=== PATIENT | male | born 1945 | race Caucasian/White ===

== ENCOUNTER → 2018-08-24 09:15 | Outpatient (CLI) | payer MEDICARE, OTHER, SELFPAY ==
[2014-07-25 09:36] VITALS: BMI 25.1
--- NOTE | 2018-08-24 09:18 | RAD_ITS ---
STUDY: X-RAY - LEFT KNEE REASON FOR EXAM: Chronic knee pain. TECHNIQUE: 4 view(s) of the knee. COMPARISON: Radiographs 07/25/2014. FINDINGS: Normal visualized distal femur. Normal visualized proximal tibia and fibula. Normal proximal tibiofibular articulation. Normal medial femorotibial compartment. There are marginal osteophytes, subchondral cystic change of the lateral femoral condyle and severe joint space narrowing of the lateral femorotibial compartment, increased since the prior study. There are small marginal osteophytes without demonstrated joint space narrowing of the patellofemoral articulation. There is a joint effusion. RAD/Knee 4 or More Views IMPRESSION: Increased arthrosis of the lateral femorotibial compartment. Joint effusion. Electronically Signed: Juan Panda MD at 12:57 EST Tel , Service support ,
== END ==
PROVIDERS: Family Provider Internal Medicine; PCP Internal Medicine; Referring Provider Orthopaedic Surgery; Visit Provider Orthopaedic Surgery
DX: M25.562 Pain in left knee (principal)
CPT/HCPCS: 73564

== ENCOUNTER → 2018-08-24 10:29 | Outpatient (CLI) | payer MEDICARE, OTHER, SELFPAY ==
[2014-07-25 09:36] VITALS: BMI 25.1
--- NOTE | 2018-08-24 10:31 | RAD_ITS ---
STUDY: X-RAY - LUMBOSACRAL SPINE REASON FOR EXAM: Male, 73 years old. Low back pain. TECHNIQUE: 6 view(s) of the lumbosacral spine were obtained. COMPARISON: None FINDINGS: Normal lumbar lordosis. Moderate dextroscoliosis. Grade 1 left lateral subluxation of L2 on L3. Mild right lateral subluxation of L3 on L4. Pronounced left-sided disc space height narrowing at L2-L3 and L3-L4 disc space levels. Pronounced L5-S1 disc space height narrowing. Mild L4-L5 disc space height narrowing. No acute fractures. No lytic or blastic lesions. Normal bilateral sacral ala, sacroiliac joints, and visualized sacrum. Normal visualized soft tissue structures. RAD/L/S Spine Comp/w Bending Views IMPRESSION: 1. Moderate dextroscoliosis of the lumbar spine. 2. Grade 1 left lateral subluxation of L2 on L3. 3. Mild right lateral subluxation of L3 on L4. 4. Pronounced left-sided disc space height narrowing at L2-L3 and L4-L5 disc space levels. 5. Diffuse pronounced disc space height narrowing at L5-S1 disc space level. 6. Mild L4-L5 disc space height narrowing. Electronically Signed: Balwinder Gómez MD at 15:37 EST , Service support ,
== END ==
PROVIDERS: Family Provider Internal Medicine; PCP Internal Medicine; Referring Provider Orthopaedic Surgery; Visit Provider Orthopaedic Surgery
DX: M54.16 Radiculopathy, lumbar region (principal); M25.562 Pain in left knee
CPT/HCPCS: 72114; 73564

== ENCOUNTER 2018-08-29 13:52 | Outpatient (RCR) | payer MEDICARE, OTHER, SELFPAY ==
--- NOTE | 2018-08-29 15:00 | HP.PTEVAL ---
Patient's Visit Information HERO ZARAGOZA is a 73 year old M referred to Physical Therapy by Luci Hdez DO with a diagnosis of L knee OA, lumbar radiculopathy. Date of Evaluation: 08/29/18 Physical Therapist: Jeniffer Mejía - Visit Plan Frequency: 1x/Week Duration: 1 Week Plan: 1 additional visit for HEP for L knee AROM, hip and knee strengthening with HEP - Subjective Findings: Pt reports that his L knee is bothering him since 5 years ago. It ususally gets better but now its lasted a few weeks and gets calf, ankle and back of knee. He has PD. He has a visible tremor. He has had PD for 6-7 years and is on medicine. THe cold weather or nerves will make the tremors worse. He has no N$T in the L leg. He reports no weakness. He has not had any falls. Pt does not report LBP. He is unable to sit to stand without using his arms cause it hurts behind his knee. x-rays were done and showed arthritis. 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 Movement helps with the knee and leg pain. His L side is stiff in the morning. Movement helps with this stiffness. Stairs: up with the R and then the L with a railing. Pt exxercises 4X/ week with TM and weights for about 1 hour and 15 min. Pt has been using a brace on his L knee for about the last week and a half.... if he wears the brace the feeling of pressure goes away. - Pain L knee pain Pain Intensity (Out of 10): 1 Pain Intensity Range: 1, 2 - Objective Gait: walks with decreased flexability at the ankle and knee on the L compared to the R. He walks with decreased stance time on the L leg. L knee AROM: -5 degrees from full extension, 96 degrees L knee flexion. R knee AROM: 120 degrees knee flexion, and -1 degrees from full extension. Coordination: Toe tapping on the floor...ok with moving at a slow pace and equal B but when asked to speed up the R foot moved slower than the L. Hand pronation/supination: slower on the L when moving faster. LE MMT: hip flex R 4/5 and L 4-/5, Knee ext B 4/5, Knee flex R 4/5 and L 3+/5, hip abd R 4/5 and L 3+/5. Pt is able to raise heels and toes in shortened range. Very rigid LE with PROM....helps when instruct the pt to relax. L knee very swollen visually. No tenderness to palation L calf. Tight gastroc and HS B - Goals Goal 1:: I HEP to be able to continue with exeercises for strengthening at home Goal Time Frame: 2-4 Weeks Goal 2:: Increase L knee AROM to 105 degrees knee flexion Goal Time Frame: 2-4 Weeks Goal 3:: Decrease L knee pain to 0-1/10 with sitting and walking Goal Time Frame: 2-4 Weeks - Rehabilitation Potential Rehabilitation Potential: Good - Anticipated Interventions Patient/Client Instruction: Educate patient on: Plan of Care For the Purpose of:: To decrease pain, To decrease swelling/inflammation, To improve muscle performance and motor function, To improve ability to perform ADL's, To increase tolerance to activity/condition/position, To improve gait and locomotor functions, To improve health of tissue, To decrease soft tissue restriction, To increase flexibility/ROM Therapeutic Exercise to Include: Strength training, Coordination, Flexibilty training, Gait and locomotor training, Neuromotor development, Active ROM For the Purpose of:: To decrease pain, To decrease swelling/inflammation, To increase ROM, To improve nutrient delivery to tissue, To improve muscle performance and motor function, To increase tolerance to activity/condition/position, To improve performance and independence with ADL's, To improve gait and locomotor functions, To improve health of tissue, To decrease soft tissue restriction, To increase flexibility/ROM, To improve safety with gait Thank you for the opportunity to evaluate your patient. For Medicare and Medicare HMO plans, please review the plan of care and approve it. It will need to be FAXED BACK to us at [phone] for Medicare purposes. For Medicare only, by signing this I certify the plan of care. Please let me know if there are questions or concerns regarding this plan of care. Physician Signature: Date:
--- OUTSIDE RECORDS SUMMARY | 2018-10-15 18:47 | XMS RPT_ITS | Summary of Care ---
:1945 Author Organization [facility] Address [address] [place] [address] Care Team Providers Name Role Phone Tomeka Hastings DO Primary Care Provider Reason for Visit Reason Comments Pain Encounter Details Date Type Department Care Team Description 05/24/2018 Office Visit [facility] Ankur Quinones Primary osteoarthritis [facility] MD Cheng of left knee ([facility] [address] Dx) [address] [place] [address] [phone] Allergies No Known Allergiesas of this encounter Medications Prescription Sig. Disp. Refills Start Date End Date Status amantadine HCl Take 100 mg by 3 03/19/2018 Active (SYMMETREL) 100 mg mouth 3 (three) capsule times a day. amLODIPine-benazepril Take 1 capsule by 1 03/28/2018 Active (LOTREL) 5-20 mg per mouth daily. capsule donepezil (ARICEPT) 5 MG Take 5 mg by mouth 5 05/13/2018 Active tablet daily with breakfast. D3/E/Se/soy Take by mouth. Active isofl/tocoph/lycop (PROSTATE 2.4 ORAL) FAMOTIDINE ORAL Take by mouth. Active as of this encounter Social History Tobacco Use Types Packs/Day Years Used Date Never Smoker Smokeless Tobacco: Never Used Sex Assigned at Date Recorded Not on file as of this encounter Last Filed Vital Signs Vital Sign Reading Time Taken Blood Pressure - - Pulse - - Temperature - - Respiratory Rate - - Oxygen Saturation - - Inhaled Oxygen Concentration - - Weight 79.4 kg (175 lb) 05/24/2018 3:31 PM EDT Height 177.8 cm (5' 10) 05/24/2018 3:31 PM EDT Body Mass Index 25.11 05/24/2018 3:31 PM EDT in this encounter Progress Notes Ankur Quinones MD - 05/24/2018 7:16 PM EDTAssociated Order(s): [place] ORT LARGE JOINT ARTHROCENTESISPost-Procedure Diagnose(s): Primary osteoarthritis of left knee Dictation on: 05/24/2018 7:20 PM by: ANKUR QUINONES [[id number]] LG Jt Injection/Arthrocentesis Performed by: ANKUR QUINONES Authorized by: ANKUR QUINONES Supporting Documentation: Indications: Pain Procedure Details: Location: Knee Site: L knee Prep: patient was prepped and draped in usual sterile fashion Needle size: 22 G Approach: Lateral Medications: 40 mg triamcinolone acetonide 40 mg/mL Anesthetic used: Lidocaine 1% Anesthetic amount (mL): 2 Patient tolerance: Patient tolerated the procedure well with no immediate complications in this encounter Plan of Treatment Pending Results Name Priority Associated Diagnoses Date/Time Joint Routine Primary osteoarthritis of left 05/24/2018 7:16 PM EDT Injection/Arthrocentes knee is Health Maintenance Due Date Last Done Comments COLONOSCOPY 1945 HEPATITIS C SCREENING 1945 TETANUS EVERY 10 YR 1945 ZOSTER VACCINES (1 of 2) 1995 PNEUMOCOCCAL VACCINE AGE 65+ (1 of 2 - PCV13) 2010 SEQUENTIAL INFLUENZA VACCINE (#1) 2018 as of this encounter Procedures Procedure Name Priority Date/Time Associated Diagnosis Comments XR KNEE LEFT 4+ VIEWS Routine 05/24/2018 7:22 Primary Results for this (SPECIFY VIEWS IN PM EDT osteoarthritis of procedure are in COMMENTS) left knee the results section. PA ARTHROCENTESIS Routine 05/24/2018 7:16 Primary ASPIR&/INJ MAJOR PM EDT osteoarthritis of JT/BURSA W/O US left knee Procedure Note - Ankur Quinones MD - 05/24/2018 7:16 PM EDT Dictation on: 05/24/2018 7:20 PM by: ANKUR QUINONES [[id number]] LG Jt Injection/Arthrocentesis Performed by: ANKUR QUINONES Authorized by: ANKUR QUINONES Supporting Documentation: Indications: Pain Procedure Details: Location: Knee Site: L knee Prep: patient was prepped and draped in usual sterile fashion Needle size: 22 G Approach: Lateral Medications: 40 mg triamcinolone acetonide 40 mg/mL Anesthetic used: Lidocaine 1% Anesthetic amount (mL): 2 Patient tolerance: Patient tolerated the procedure well with no immediate complications in this encounter Results XR Knee Left 4+ Views (Note in Comments) (05/24/2018 7:22 PM) Narrative Performed At Lateral joint is bone against bone he has moderate patellofemoral GE RIS degenerative arthritis as well Performing Organization Address [facility] Phone Number [facility] GE RIS in this encounter Visit Diagnoses Diagnosis Primary osteoarthritis of left knee - Primary Administered Medications Inactive Administered Medications - up to 3 most recent administrations Medication Order MAR Action Action Date Dose Rate Site triamcinolone acetonide ([id number]-40) Given 05/24/2018 19:21 EDT 40 mg injection 40 mg 40 mg, Intra-articular, Starting 05/24/18 at 1921 in this encounter
--- OUTSIDE RECORDS SUMMARY | 2018-10-15 18:47 | XMS RPT_ITS ---
:1945 Author Organization OHIP Support Name Relationship Address Phone MARGO ZARAGOZA Unavailable Unavailable + R Unavailable Unavailable Unavailable MILAJMCY Unavailable [address] + [place] [address] R Unavailable Unavailable Unavailable MILA, MARGO Unavailable [address] + [place] [address] R Unavailable Unavailable Unavailable MILA, MARGO Unavailable [address] + [place] [address] R Unavailable Unavailable Unavailable MILA, MARGO Unavailable [address] + [place] [address] R Unavailable Unavailable Unavailable MILA, MARGO Unavailable [address] + [place] [address] R Unavailable Unavailable Unavailable MILA, MARGO Unavailable [address] + [place] [address] MILA, MARGO Unavailable [address] + [place] [address] MILA ROSHAN Unavailable Unavailable Unavailable MILA, MARGO Unavailable Unavailable + MILA, MARGO Unavailable [address] + [place] [address] MILA, MARGO Unavailable Unavailable + MILA, MARGO Unavailable [address] + [place] [address] MILA, MARGO Unavailable Unavailable + MILA, MARGO Unavailable [address] + [place] [address] MILA ROSHAN Unavailable Unavailable Unavailable Care Team Providers Name Role Phone DossiMila vicente D.C. Attending Unavailable ROYAL, MIYA Referring Unavailable BorrusoKemar Attending Unavailable ChicorelliLuci Attending Unavailable ROYAL, MIYA Referring Unavailable Chicorelli, Luci Attending Unavailable ChicorelliLuci Referring Unavailable ROYAL, MIYA Primary Care Unavailable Chicorelli, Luci Attending Unavailable Chicorelli, Luci Referring Unavailable ROYAL, MIYA Primary Care Unavailable Chicorelli, Luci Attending Unavailable Chicorelli, Luci Referring Unavailable ROYAL, MIYA Primary Care Unavailable ThapaBernardino Attending Unavailable Stark, Miya S Primary Care Unavailable Stark, Miya S Attending Unavailable Stark, Miya S Primary Care Unavailable Stark, Miya S Admitting Unavailable Stark, Miya S Primary Care Unavailable Stark, Miya S Admitting Unavailable Stark, Miya S Attending Unavailable ThapaBernardino Attending Unavailable Stark, Miya S Primary Care Unavailable ThapaBernardino louis Admitting Unavailable Stark, Miya S Attending Unavailable Stark, Miya S Primary Care Unavailable Stark, Miya S Admitting Unavailable Stark, Miya S Admitting Unavailable Stark, Miya S Attending Unavailable Stark, Miya S Primary Care Unavailable Stark, Miya S Attending Unavailable Stark, Miya S Primary Care Unavailable Stark, Miya S Admitting Unavailable Stark, Miya S Attending Unavailable Stark, Miya S Primary Care Unavailable Stark, Miya S Primary Care Unavailable ThapaBernardino Admitting Unavailable ThapaBernardino Attending Unavailable Stark, Miya S Attending Unavailable Stark, Miya S Primary Care Unavailable Stark, Miya S Admitting Unavailable Stark, Miya S Admitting Unavailable Stark, Miya S Attending Unavailable Stark, Miya S Primary Care Unavailable Stark, Miya S Attending Unavailable Stark, Miya S Primary Care Unavailable Stark, Miya S Admitting Unavailable Stark, Miya S Attending Unavailable Stark, Miya S Primary Care Unavailable Stark, Miya S Admitting Unavailable BORRUSOKEMAR Admitting Unavailable BORRUSOKEMAR Attending Unavailable Stark, Miya S Primary Care Unavailable Stark, Miya S Admitting Unavailable Stark, Miya S Attending Unavailable Stark, Miya S Primary Care Unavailable BIANCA SANCHEZ Attending Unavailable ROYAL, MIYA S Referring Unavailable ROYAL, MIYA S Primary Care Unavailable LAURA, BIANCA L Attending Unavailable MIYA ANDINO S Referring Unavailable MIYA ANDINO S Primary Care Unavailable Daryl, Dr. Cody Vicente Admitting Unavailable Dr. Cody Brito Attending Unavailable ANTELMO MEZA Attending Unavailable IRENE DE LA ROSA Attending Unavailable MIYA ANDINO. Primary Care Unavailable PROBLEMS PROBLEMS DATE TYPE CONDITION / CODE ATTENDING STATUS SOURCE 09/01/2018 Unknown M51.36 - Other DossiMila vicente Active [place] intervertebral disc [facility] degeneration, lumbar Hospital region / Repository M51.36(ICD-10) 09/01/2018 Unknown M41.26 - Other Dossie, Mila Active [place] idiopathic [facility] scoliosis, lumbar [facility] region / Repository M41.26(ICD-10) 08/24/2018 Unknown M25.562 - Pain in Chicorelli, Active [place] left knee / [facility] M25.562(ICD-10) Hospital Repository 08/24/2018 Unknown M54.16 - Chicorelli, Active [place] Radiculopathy, [facility] lumbar region / Hospital M54.16(ICD-10) Repository 08/24/2018 Unknown M17.12 - Unilateral Chicorelli, Active [place] primary [facility] osteoarthritis, left Hospital knee / Repository M17.12(ICD-10) 07/18/2018 Admitting Parkinson's disease LAURA, Active [facility] diagnosis / G20(ICD-10) [facility] Repository 05/24/2018 Admitting Unilateral primary RJIRENE Active [facility] diagnosis osteoarthritis, left JOSEE Three knee / Repository M17.12(ICD-10) 01/17/2018 Admitting Follow-up / 145() LAURA, Active [facility] diagnosis BIANCA [facility] Repository PROCEDURES PROCEDURES No Procedure Records FoundRESULTS RESULTS BMP Collected: 10/10/2018 Status: F Source: [facility] 7:43 [facility] REPOSITORY TYPE CODE TESTS RESULT OUT OF RANGE REFERENCE UNITS LAB [id number](L 70-99 mg/dL OINC) Glucose Normal Lvl 84 LAB [id number](L 6-23 mg/dL OINC) BUN Normal 19 LAB [id number](LO 0.5-1.3 mg/dL INC) Normal Creatinine 1.0 LAB [id number](L 5.4-30.0 ratio OINC) Normal BUN/Creat Ratio 19.0 LAB [id number](L 8.6-10.3 mg/dL OINC) Calcium Normal Lvl 9.5 LAB [id number](L 136-145 mEq/L OINC) Sodium Normal Lvl 140 LAB [id number](L 3.5-5.3 mEq/L OINC) Normal Potassium Lvl 3.6 LAB [id number](L 98-107 mEq/L OINC) Chloride Normal 106 LAB [id number](L 21.0-32.0 mEq/L OINC) CO2 Normal 29.0 LAB [id number](L 10-20 mEq/L OINC) Low AGAP 9 Performed By: #### [id number] #### MARY [employer] [facility] [place] [address] EGFR Collected: 10/10/2018 Status: F Source: [facility] 7:43 AM [facility] REPOSITORY Order Comment: Order added by Discern Expert. TYPE CODE TESTS RESULT OUT OF RANGE REFERENCE UNITS LAB [id number](LO mL/min/1.73 INC) m2 Normal eGFR >60 LAB [id number](LO mL/min/1.73 INC) m2 Normal eGFR AA >60 Performed By: #### [id number] #### MARY [employer] [facility] [place] [address] PSA SCREEN Collected: 10/10/2018 Status: F Source: [facility] 7:43 AM [facility] REPOSITORY TYPE CODE TESTS RESULT OUT OF RANGE REFERENCE UNITS LAB [id number](LO ng/mL INC) Normal PSA 3.30 Result Comment: AGE-SPECIFIC REFERENCE RANGES FOR SERUM PSA REFERENCE RANGE NG/ML AGE ASIANS BLACKS WHITE 40-49 0- 2 0-2 0-2.5 50-59 0- 3 0-4 0-3.5 60-69 0- 4 0-4.5 0-4.5 70-79 0- 5 0-5.5 0-6.5 PSA INCREASES WITH AGE, RACE, AND EJACULATION WITHIN 48 HRS. [facility] VOL24,NO.2, , PG.339 Performed By: #### [id number] #### MARY [employer] [facility] [place] [id number] ORTHOPEDIC VISIT Observed: 10/05/2018 Status: F Source: IRENE REPORT 3:10 PM [facility] [place] [facility] [address] [place] [address] OFFICE VISIT Date of Service: 10/05/18 MR#: [id number] Acct: [id number] Name: ROSHAN ZARAGOZA Rep #: [id number] : 1945 Provider: Kemar Rucker DO Age/Sex: 73/M Location: [facility] Status: Signed Intake Vital Signs10/05/18 Body Mass Index (BMI) 25.1 Intake Visit Reasons: LEFT KNEE Chief Complaint: L knee pain Allergies No Known Allergies Allergy (Verified 08/24/18 09:06) Medications Amantadine [Symmetrel] 100 mg PO TID 03/06/14 [History Confirmed 10/05/18] Omeprazole [Prilosec] 20 mg PO BID 03/06/14 [History Confirmed 10/05/18] Polyethylene Glycol 3350 [Miralax] 17 gm PO DAILY 03/06/14 [History Confirmed 10/05/18] Docusate Sodium [Colace] 100 mg PO BID PRN PRN #10 cap 03/14/14 [Rx Confirmed 10/05/18] donepezil 5 mg tablet 5 mg PO DAILY 10/05/18 [History Confirmed 10/05/18] PFSH Medical History DDD (degenerative disc disease), lumbar (Chronic) Scoliosis (Chronic) Arthritis (Acute) GERD (gastroesophageal reflux disease) (Acute) Headaches, cluster (Acute) Melanoma (Acute) Parkinson disease (Acute) Right club foot (Acute) Hypertension (Chronic) Surgical History H/O shoulder replacement (Acute) Social History Smoking Status: Unknown if ever smoked alcohol intake: never substance use type: does not use what type of physical activity do you participate in: walking, weight training frequency: 3-4 times per week HPI LEFT KNEE: Details: ROSHAN ZARAGOZA is a 73 year old M here today for left knee pain for many years. He has about 80 degrees of flexion until he has tight painful feeling and full extension. He has clicking and swelling on and off. He takes aspirin daily 325mg to aid in relief. He did go for PT eval and is compliant with HEP he has had a steroid injection without relief in the past 2 months. Denies numbness, tingling or other associated symptoms. He does complain of some hamstring pain and radiation down his leg at times. 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 Ortho Exam Left Knee Swelling: Yes 3+: Effusion Knee ROM: Yes ROM-Extension -20 to 0 (Lacking 8 degrees is) Examination: Yes med jt line tenderness, Yes Lat jt line tenderness, Yes TTP inf pole patella, Yes Pain with flexion Stability: NML: Anterior Drawer, NML: Posterior Drawer, NML: Valgus 30, NML: Varus 30 Patella Grind: Yes KNEE: Palpable pedal pulse. no errythema or ecchymosis. postive bakers cyst. 78 degrees knee flexion. -8 degrees knee extension. no collateral instability. No foot drop Office Procedures Ortho Aspiration Procedure Detail Procedure performed by: Kemar Rucker Ortho Injections/Aspirations Yes Knee Left Details: Obtained consent for aspiration. Under sterile conditions, aspiration the patients left knee 65cc of clear, yellow fluid . The patient tolerated the injection well without any noted complication. Patient should call our office if redness develops, pain worsens or if they have any concerns. Supplemental Info Personally reviewed patients left knee severe lateral compartment OA, bone on bone on flexion view. Moderate PF spurring. Assessment AND Plan Problems 1. Primary osteoarthritis of left knee M17.12 Plan Spoke with the patient about his options- an aspiration and injection or a total knee replacement. Explained the total knee surgical procedure and recovery. Explained that he may return home after surgery. He should work on range of motion within the first 6 weeks post op, and explained the importance of range of motion. He has a risk of decreased range of motion following surgery due to decreased range of motion pre-operatively. He may do PT prior to surgery for range of motion. Gave the patient a script for PT. It may take up to 3 months to feel better and up to 2 years to be fully recovered. He will be on a blood thinner for 2 weeks following surgery to prevent blood clots. He will be put on flomax after surgery due to prior issues with surgery. He should stop aspirin 1 week prior to surgery. Patient has failed conservative treatment with injections and therapy. Explained that he has radiating pain into his quad and calf from his knee swelling. Patient would like to proceed with surgery at this time. Reviewed the pre-operative plans with the patient. Risks and benefits of the procedure were fully explained, including but not limited to infection, neurovascular injury, continued pain, arthritis, stiffness, need for further surgery, re-injury, DVT, PE, general risks of anesthesia, and loss of limb or life. The patient understands all the risks and does wish to proceed with written consent. Follow up for 2 week post op or sooner if pain, swelling, numbness or associated symptoms, or concerns develop. All questions answered. Patient in agreement of plan. Orders Orders: Coding Level of Care Code Off vis,est,level 4 Diagnoses Primary osteoarthritis of left knee M17.12 Osteoarthritis type: primary Additional Codes manager corporate responsibility.knee ([id number]) 10/05/18 1510 <Electronically signed by Kemar Rucker DO> Date Kemar Rucker DO Cosigner Signature: Date (if applicable) CC: MIYA ANDINO CHIROPRACTIC REPORT Observed: 08/31/2018 Status: F Source: IRENE 4:07 PM [facility] [place] [facility] [facility] [address] [place] [address] OFFICE VISIT Date of Service: 08/31/18 MR#: [id number] Acct: [id number] Name: ROSHAN ZARAGOZA Krysta Rep #: [id number] : 1945 Provider: Mila Canela D.C. Age/Sex: 73/M Location: [facility] Status: Signed Intake Vital Signs08/31/18 Height 5 ft 10 in 08/31/18 Weight: 175 lb 08/31/18 Body Mass Index (BMI) 25.1 Intake Visit Reasons: Knee pain Chief Complaint: L knee pain Accompanied by: Daughter Is patient in pain?: Yes Allergies No Known Allergies Allergy (Verified 08/24/18 09:06) Medications Amantadine [Symmetrel] 100 mg PO TID 03/06/14 [History Confirmed 03/06/14] Amlodipine/Benazepril [Lotrel 5-20 MG Capsule] 1 cap PO DAILY 03/06/14 [History Confirmed 03/06/14] Aspirin [Aspirin, Baby] 81 mg PO DAILY@0800 03/06/14 [History Confirmed 03/06/14] Omeprazole [Prilosec] 20 mg PO BID 03/06/14 [History Confirmed 03/06/14] Polyethylene Glycol 3350 [Miralax] 17 gm PO DAILY 03/06/14 [History Confirmed 03/06/14] Docusate Sodium [Colace] 100 mg PO BID PRN PRN #10 cap 03/14/14 [Rx] Enoxaparin [Lovenox] 30 mg SQ DAILY@0600 #7 syringe 03/14/14 [Rx] Hydrocodone Bitart/Apap 5-325 [Lyons 5/325] 1 - 2 tab PO Q6H PRN PRN #30 tab 03/14/14 [Rx] proMETHazine tablet [Phenergan] 25 mg PO Q4H PRN PRN #10 tab 03/14/14 [Rx] PFSH Medical History DDD (degenerative disc disease), lumbar (Chronic) Scoliosis (Chronic) Arthritis (Acute) GERD (gastroesophageal reflux disease) (Acute) Headaches, cluster (Acute) Melanoma (Acute) Right club foot (Acute) Hypertension (Chronic) Parkinson disease (Acute) Surgical History H/O shoulder replacement (Acute) Social History Smoking Status: Unknown if ever smoked alcohol intake: never substance use type: does not use what type of physical activity do you participate in: walking, weight training frequency: 3-4 times per week HPI Knee pain : Chief Complaint: L knee pain Visit Number: 1 Referral source: Details: ROSHAN ZARAGOZA is a 73 year old M who presents with L sided knee pain. The patient states that pain has been ongoing for many years, although has recently increased. Roshan describes the pain as a fatou horse sensation that is painful in the orta, posterior and anterior to the knee cap and into the calf. Sitting and bending the knee causes severe pain, although when walking the pain does not increase. Roshan does have a club foot on the R side, causing him to bear most of his weight on the L leg. Roshan is unaware of any injury to his back, although he enjoys cutting firewood with frequent bending, leaning, twisting, and lifting. Today Roshan rates his pain a 3/10, although with movement or rotation of the knee, the pain does increase. The patient denies any numbness, tingling, or radiculopathy. Onset: 09/19/12 Location: L knee Duration: constant Aggravating or associated factors: sitting, rotation, and flextion of the knee Relieving factors: unknown Pain Quality: aching, dull, cramping, sharp, radiating Exam Musc General: Yes deformity (right club foot), joint tenderness (L knee) and decreased ROM; no normal posture or normal gait (favors right leg) Thoracic/Lumbar Spine: thor and lumb spine abnorm to inspection, scoliosis (right lumbar), thoraco-lumbar spasm on the right greater than left (lumbar), no paraspinal tenderness, thoraco-lumbar ROM limited with forward flexion, with rotation to the right, with lateral flexion to the right, with rotation to the left and with lateral flexion to the left, no pain with thoraco-lumbar ROM, negative Lasegue's sign (mild L knee pain), straight leg raise negative bilaterally Ortho Test CERVICAL THORACIC Amaral: Positive (right lumbar) LUMBAR Kemps: Negative Valsalvas: Negative SLR: Negative Iliac Compression: Negative Assessment AND Plan Problems 1. DDD (degenerative disc disease), lumbar M51.36 2. Other idiopathic scoliosis, lumbar region M41.26 Plan Patient currently has no back/pelvic discomfort. His ROM were WNL. Orthopaedic testing for low back and pelvis was also WNL. Recommend continued treatment with PT for L knee discomfort. Instructed to follow up should pain persisted after PT has been completed. Plan Detail Follow Up with PT Coding Level of Care Code Off vis,new,level 3 Diagnoses DDD (degenerative disc disease), lumbar M51.36 Other idiopathic scoliosis, lumbar region M41.26 Scoliosis type: idiopathic Idiopathic scoliosis type: other Spinal region: lumbar 08/31/18 1607 <Electronically signed by Mila Canela D.C.> Date Mila Canela D.C. Ionaigner Signature: Date (if applicable) CC: INITAL EVALUATION (1) Observed: 08/30/2018 Status: F Source: XENIA - PT 7:21 PM [facility] [place] [facility] [address] [place] [address] Fax REHABILITATION SERVICES INITIAL EVALUATION MR#: [id number] Acct: [id number] Name: ROSHAN ZARAGOZA Rep #: [id number] : 1945 73 From: Jeniffer Mejía MPT Referring Dr.: Luci Hdez DO Status: REG RCR Insurance: MEDICARE PART A B [facility] Patient's Visit Information ROSHAN ZARAGOZA is a 73 year old M referred to Physical Therapy by Luci Hdez DO with a diagnosis of L knee OA, lumbar radiculopathy. Date of Evaluation: 08/29/18 Physical Therapist: Jeniffer Mejía - Visit Plan Frequency: 1x/Week Duration: 1 Week Plan: 1 additional visit for HEP for L knee AROM, hip and knee strengthening with HEP - Subjective Findings: Pt reports that his L knee is bothering him since 5 years ago. It ususally gets better but now its lasted a few weeks and gets calf, ankle and back of knee. He has PD. He has a visible tremor. He has had PD for 6-7 years and is on medicine. THe cold weather or nerves will make the tremors worse. He has no N$T in the L leg. He reports no weakness. He has not had any falls. Pt does not report LBP. He is unable to sit to stand without using his arms cause it hurts behind his knee. x-rays were done and showed arthritis. 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 Movement helps with the knee and leg pain. His L side is stiff in the morning. Movement helps with this stiffness. Stairs: up with the R and then the L with a railing. Pt exxercises 4X/ week with TM and weights for about 1 hour and 15 min. Pt has been using a brace on his L knee for about the last week and a half.... if he wears the brace the feeling of pressure goes away. - Pain L knee pain Pain Intensity (Out of 10): 1 Pain Intensity Range: 1, 2 - Objective Gait: walks with decreased flexability at the ankle and knee on the L compared to the R. He walks with decreased stance time on the L leg. L knee AROM: -5 degrees from full extension, 96 degrees L knee flexion. R knee AROM: 120 degrees knee flexion, and -1 degrees from full extension. Coordination: Toe tapping on the floor...ok with moving at a slow pace and equal B but when asked to speed up the R foot moved slower than the L. Hand pronation/supination: slower on the L when moving faster. LE MMT: hip flex R 4/5 and L 4-/5, Knee ext B 4/5, Knee flex R 4/5 and L 3+/5, hip abd R 4/5 and L 3+/5. Pt is able to raise heels and toes in shortened range. Very rigid LE with PROM....helps when instruct the pt to relax. L knee very swollen visually. No tenderness to palation L calf. Tight gastroc and HS B - Goals Goal 1:: I HEP to be able to continue with exeercises for strengthening at home Goal Time Frame: 2-4 Weeks Goal 2:: Increase L knee AROM to 105 degrees knee flexion Goal Time Frame: 2-4 Weeks Goal 3:: Decrease L knee pain to 0-1/10 with sitting and walking Goal Time Frame: 2-4 Weeks - Rehabilitation Potential Rehabilitation Potential: Good - Anticipated Interventions Patient/Client Instruction: Educate patient on: Plan of Care For the Purpose of:: To decrease pain, To decrease swelling/inflammation, To improve muscle performance and motor function, To improve ability to perform ADL's, To increase tolerance to activity/condition/position, To improve gait and locomotor functions, To improve health of tissue, To decrease soft tissue restriction, To increase flexibility/ROM Therapeutic Exercise to Include: Strength training, Coordination, Flexibilty training, Gait and locomotor training, Neuromotor development, Active ROM For the Purpose of:: To decrease pain, To decrease swelling/inflammation, To increase ROM, To improve nutrient delivery to tissue, To improve muscle performance and motor function, To increase tolerance to activity/condition/position, To improve performance and independence with ADL's, To improve gait and locomotor functions, To improve health of tissue, To decrease soft tissue restriction, To increase flexibility/ROM, To improve safety with gait Thank you for the opportunity to evaluate your patient. For Medicare and Medicare HMO plans, please review the plan of care and approve it. It will need to be FAXED BACK to us at [phone] for Medicare purposes. For Medicare only, by signing this I certify the plan of care. Please let me know if there are questions or concerns regarding this plan of care. Physician Signature: Date: <Electronically signed by Jeniffer ESCAMILLA> 08/30/181920 CC: Luci ANDINO Signed ORTHOPEDIC VISIT Observed: 08/24/2018 Status: F Source: IRENE REPORT 11:17 AM [facility] [place] [facility] [facility] [address] [place], [place] [id number] OFFICE VISIT Date of Service: 08/24/18 MR#: [id number] Acct: [id number] Name: ROSHAN ZARAGOZA Rep #: [id number] : 1945 Provider: Luci Hdez DO Age/Sex: 73/M [place] [facility] [place]: Signed Intake Intake Visit Reasons: LEFT KNEE Is patient in pain?: Yes Pain scale (1-10): 7 Allergies No Known Allergies Allergy (Verified 08/24/18 09:06) Medications Amantadine [Symmetrel] 100 mg PO TID 03/06/14 [History Confirmed 03/06/14] Amlodipine/Benazepril [Lotrel 5-20 MG Capsule] 1 cap PO DAILY 03/06/14 [History Confirmed 03/06/14] Aspirin [Aspirin, Baby] 81 mg PO DAILY@0800 03/06/14 [History Confirmed 03/06/14] Omeprazole [Prilosec] 20 mg PO BID 03/06/14 [History Confirmed 03/06/14] Polyethylene Glycol 3350 [Miralax] 17 gm PO DAILY 03/06/14 [History Confirmed 03/06/14] Docusate Sodium [Colace] 100 mg PO BID PRN PRN #10 cap 03/14/14 [Rx] Enoxaparin [Lovenox] 30 mg SQ DAILY@0600 #7 syringe 03/14/14 [Rx] Hydrocodone Bitart/Apap 5-325 [Lyons 5/325] 1 - 2 tab PO Q6H PRN PRN #30 tab 03/14/14 [Rx] proMETHazine tablet [Phenergan] 25 mg PO Q4H PRN PRN #10 tab 03/14/14 [Rx] PFSH Medical History Parkinson disease (Acute) Surgical History H/O shoulder replacement (Acute) Social History Smoking Status: Unknown if ever smoked HPI LEFT KNEE: Details: ROSHAN ZARAGOZA is a 73 year old M here today for left knee pain. Patient states that he has had left knee pain for about 5 years. He denies any known injury. Patient has a right club foot and has to ambulate with more weight on his left leg. Patient complains of pain over his entire knee and into his upper leg. He states that his pain moves. Patient notes that he has grinding. He has knee swelling. He has been wearing the compression stocking and a knee brace which has been helpful. He had xrays which he did not bring with him. Patient denies any MRI. He was given a steroid injection 6 weeks ago which was not helpful. Patient denies any physical therapy. ROS Const Reports system reviewed and no additional complaints, except as docu Eyes Reports system reviewed and no additional complaints, except as docu ENT Reports system reviewed and no additional complaints, except as docu Card Reports system reviewed and no additional complaints, except as docu Resp Reports system reviewed and no additional complaints, except as docu GI Reports system reviewed and no additional complaints, except as docu Reports system reviewed and no additional complaints, except as docu Musc Reports joint pain, Reports joint swelling Skin/Breast Reports system reviewed and no additional complaints, except as docu Neuro Yes system reviewed and no additional complaints, except as docu Psych Reports system reviewed and no additional complaints, except as docu Endo Reports system reviewed and no additional complaints, except as docu Ortho Exam Right Knee Skin/Wound: Yes CDI Contralateral Normal: No Swelling: No Knee ROM: Yes ROM-Extension -20 to 0 (10), Yes ROM-Flexion 0-140 Examination: Yes Med jt line tenderness, Yes Lat jt line tenderness, Yes Pain with flexion, Yes Crepitus Quad Atrophy: No Left Knee Skin/Wound: Yes CDI Contralateral Normal: No Swelling: Yes Homans Sign: No 1+: Effusion Knee ROM: Yes ROM-Flexion 0-140, Yes ROM-Extension -20 to 0 Examination: Yes med jt line tenderness, Yes Pain with flexion, No Lat jt line tenderness, Yes Crepitus Quad Atrophy: No Patella Grind: Yes KNEE: Upon examination of left knee, patient has mild laxity and slight joint space opening medial and lateral with both valgus and varus, greatest pain in the lateral compartment. neg straight leg raise for back pain or n/t, symmetrical deminished reflexes, palpable Tapia's Cyst Assessment AND Plan 1. Osteoarthritis of left knee, unspecified osteoarthritis type M17.12 Plan Personally reviewed the patient's medical history, medications, surgeries and recent exams if available. X-rays were reviewed. There is no obvious fracture, dislocation, or lucency noted but OA noted in medial and lateral compartments. Educated on the anatomy of the knee, explained that he has OA. He has failed injections, we will order him a lateral business info consultant brace, consult with chiro, PT and have him consult with Dr Rucker for TKA later if the conservative care fails. He is also having radicular hamstring pain likely from his lumbar spine. Reviewed the lack of definitive results of stem cell injections and that we do not do it here but we can do PRP if indicated and he is not a good candidate. Follow up in 3 months or sooner if pain, swelling, numbness or associated symptoms, or concerns develop. All questions answered. Patient in agreement of plan. 2. Lumbar radicular pain M54.16 Plan Ordered back films to be taken on his way out today. Discussed the most likely has degenerative scoliosis degenerative disc disease and will refer to either chiropractor or Dr. Barnard if you continue to have a leg pain down to his foot. Patient lost follow-up it is not doing better in about 2-[address] Rucker as pain is coming from his knee but also made worse by his pain that goes down his leg into his ankle and foot. If conservative treatment fails patient will be a good candidate for injections to see if that temporizing some of his radicular symptoms and again follow- up here with my partner discuss for further intervention surgically with total knee if warrants at that time. This note was generated with Purple [employer] dictation software. It may contain incorrect words, spelling, and punctuation that were not noted in checking the note before signing. Orders Orders: Plan Detail Other Orders Orders: Coding Level of Care Code Off vis,new,level 3 Diagnoses Osteoarthritis of left knee, unspecified osteoarthritis type M17.12 Osteoarthritis type: unspecified Lumbar radicular pain M54.16 08/24/18 1117 <Electronically signed by Luci Hdez DO> Date Luci Hdez DO Cosigncheyanne Signature: Date (if applicable) CC: L/S SPINE COMP/W Observed: 08/24/2018 Status: F Source: IRENE BENDING VIEWS 10:32 AM [facility] [place] [facility] Imaging Services [address] [place] [address] L/S Spine Comp/w Bending Views MR#: [id number] Acct: [id number] Name: ROSHAN ZARAGOZA Krysta Rep #: [id number] : 1945 M 73 From: Balwinder Gómez MD PCP: MIYA ANDINO Status: REG CLI Study: L/S Spine Comp/w Bending Views Date of Exam: 08/24/18 Exam# [id number] Ordering Dr: Luci Hdez DO STUDY: X-RAY - LUMBOSACRAL SPINE REASON FOR EXAM: Male, 73 years old. Low back pain. TECHNIQUE: 6 view(s) of the lumbosacral spine were obtained. COMPARISON: None FINDINGS: Normal lumbar lordosis. Moderate dextroscoliosis. Grade 1 left lateral subluxation of L2 on L3. Mild right lateral subluxation of L3 on L4. Pronounced left-sided disc space height narrowing at L2-L3 and L3-L4 disc space levels. Pronounced L5-S1 disc space height narrowing. Mild L4-L5 disc space height narrowing. No acute fractures. No lytic or blastic lesions. Normal bilateral sacral ala, sacroiliac joints, and visualized sacrum. Normal visualized soft tissue structures. RAD/L/S Spine Comp/w Bending Views IMPRESSION: 1. Moderate dextroscoliosis of the lumbar spine. 2. Grade 1 left lateral subluxation of L2 on L3. 3. Mild right lateral subluxation of L3 on L4. 4. Pronounced left-sided disc space height narrowing at L2- L3 and L4-L5 disc space levels. 5. Diffuse pronounced disc space height narrowing at L5-S1 disc space level. 6. Mild L4-L5 disc space height narrowing. Electronically Signed: Balwinder Gómez MD at 15:37 EST , Service support , CC: Luci ANDINO Retail General Manager: Signed KNEE 4 OR MORE Observed: 08/24/2018 Status: F Source: XENIA VIEWS 9:18 AM [facility] [place] [facility] Imaging Services [address] [place] [address] Knee 4 or More Views MR#: [id number] Acct: [id number] Name: ROSHAN ZARAGOZA Rep #: [id number] : 1945 M 73 From: Juan Panda MD PCP: MIYA ANDINO Status: REG CLI Study: Knee 4 or More Views Date of Exam: 08/24/18 Exam# [id number] Ordering Dr: Luci Hdez DO STUDY: X-RAY - LEFT KNEE REASON FOR EXAM: Chronic knee pain. TECHNIQUE: 4 view(s) of the knee. COMPARISON: Radiographs 07/25/2014. FINDINGS: Normal visualized distal femur. Normal visualized proximal tibia and fibula. Normal proximal tibiofibular articulation. Normal medial femorotibial compartment. There are marginal osteophytes, subchondral cystic change of the lateral femoral condyle and severe joint space narrowing of the lateral femorotibial compartment, increased since the prior study. There are small marginal osteophytes without demonstrated joint space narrowing of the patellofemoral articulation. There is a joint effusion. RAD/Knee 4 or More Views IMPRESSION: Increased arthrosis of the lateral femorotibial compartment. Joint effusion. Electronically Signed: Juan Panda MD at 12:57 EST Tel , Service support , CC: Luci Hdez DO; MIYA ANDINO Retail General Manager: Signed XR KNEE LEFT 4+ VIEWS Observed: 05/24/2018 Status: F Source: [place] [facility] (SPECIFY VIEWS IN 12:00 AM THREE REPOSITORY COMMENTS) Lateral joint is bone against bone he has moderate patellofemoral degenerative arthritis as well Dictated by: IRENE DE LA ROSA on TueMay 24, 2018 7:22:13 PM EDT Transcribed by: IRENE DE LA ROSA on TueMay 24, 2018 7:22:13 PM EDT Finalized by: IRENE DE LA ROSA on TueMay 24, 2018 7:22:13 PM EDT XR KNEE LEFT 4+ VIEWS Observed: 05/24/2018 Status: F Source: [facility] (SPECIFY VIEWS IN 12:00 AM THREE REPOSITORY COMMENTS) Lateral joint is bone against bone he has moderate patellofemoral degenerative arthritis as well Dictated by: IRENE DE LA ROSA on TueMay 24, 2018 7:22:13 PM EDT Transcribed by: IRENE DE LA ROSA on TueMay 24, 2018 7:22:13 PM EDT Finalized by: IRENE DE LA ROSA on TueMay 24, 2018 7:22:13 PM EDT PSA TOTAL Collected: 05/05/2018 Status: F Source: EVANGELICAL 10:02 AM [facility] REPOSITORY TYPE CODE TESTS RESULT OUT OF RANGE REFERENCE UNITS LAB [id number](LO ng/mL INC) Normal PSA Total 4.00 Result Comment: AGE-SPECIFIC REFERENCE RANGES FOR SERUM PSA REFERENCE RANGE NG/ML AGE ASIANS BLACKS WHITE 40-49 0- 2 0-2 0-2.5 50-59 0- 3 0-4 0-3.5 60-69 0- 4 0-4.5 0-4.5 70-79 0- 5 0-5.5 0-6.5 PSA INCREASES WITH AGE, RACE, AND EJACULATION WITHIN 48 HRS. [facility] VOL24,NO.2, , PG.339 Performed By: #### [id number] #### MARY [employer] [address] [place] [address] SURG Observed: 04/18/2018 Status: F Source: [facility] 12:00 AM [facility] REPOSITORY Patient Name: ROSHAN ZARAGOZA Source Skin, Right Cheek Clinical History ? BCC Diagnosis Basal cell carcinoma focally involving the deep biopsy margin. The peripheral margins are negative for tumor. JF/arj Gross Description The specimen received in formalin is a grayish-zimmerman fragment measuring 1.3 x 1.1 x 0.5 cm. Margins are inked black. Serially sectioned. Totally submitted in one cassette. CS:lat (LISSETTE/lt) Electronically Signed By Delfino Villagomez MD , Pathologist (Case signed 04/20/2018) BMP Collected: 03/15/2018 Status: F Source: EVANGELICAL 7:36 AM [facility] REPOSITORY TYPE CODE TESTS RESULT OUT OF RANGE REFERENCE UNITS LAB [id number](L 70-99 mg/dL OINC) Glucose Normal Lvl 83 LAB 77152652(L 7-18 mg/dL OINC) High BUN 24 LAB 9848415(LO 0.6-1.3 mg/dL INC) Normal Creatinine 1.1 LAB 32940119(L 5.4-30.0 ratio OINC) Normal BUN/Creat Ratio 21.8 LAB 47741976(L 8.4-10.2 mg/dL OINC) Calcium Normal Lvl 9.2 LAB 71149708(L 136-145 mEq/L OINC) Sodium Normal Lvl 139 LAB 21825874(L 3.5-5.1 mEq/L OINC) Normal Potassium Lvl 3.9 LAB 27967970(L 98-107 mEq/L OINC) Chloride Normal 105 LAB 46057118(L 24.0-30.0 mEq/L OINC) CO2 Normal 28.0 Performed By: #### [id number] #### MARY [employer] [facility] [place] [id number] EGFR Collected: 03/15/2018 Status: F Source: EVANGELICAL 7:36 AM [facility] REPOSITORY Order Comment: Order added by Discern Expert. TYPE CODE TESTS RESULT OUT OF RANGE REFERENCE UNITS LAB 56263393(LO mL/min/1.73 INC) m2 Normal eGFR >60 LAB 65806437(LO mL/min/1.73 INC) m2 Normal eGFR AA >60 Performed By: #### [id number] #### MARY [facility] [address] [place] [address] ALLERGIES ALLERGIES DATE TYPE / CODE NAME / CODE REACTION SEVERITY SOURCE 08/24/2018 Drug No Known Unknown [facility] Allergy/416 Allergies/L92014 [facility] 673113(SNOM 0388(RXNORM) Repository ED CT) Drug/900194 No Known Alevism 003(SNOMED Allergies [facility] CT) System Repository Drug NO KNOWN [facility] Class/68568 ALLERGIES Repository 1003(SNOMED CT) ENCOUNTERS ENCOUNTERS ADMIT/DISCHARGE ACCOUNT NUMBER ADMITTING ENCOUNTER LOCATION SOURCE CLASS 10/10/2018/10/10/19 [id number] [place], Ambulatory Alevism Alevism [facility] ding:SH.[facility] Repository 10/10/2018 [id number] Ambulatory [address] [place] [address] Repository 10/06/2018/10/06/19 [id number] [place], Ambulatory [address] ding:[place] Repository nt MedicRoom: Room 2 10/06/2018 [id number] BORRU, Ambulatory [facility] ding:[facility] B Repository 10/05/2018/10/05/19 [id number] Ambulatory BMSBuilding: [place] 19 BMS.[facility] Repository 08/31/2018/08/31/20 [id number] Ambulatory BMSBuilding: [place] 18 BMS.[facility] Repository 08/29/2018 [id number] Ambulatory [facility] ding:PT Repository 08/24/2018 [id number] Ambulatory [facility] ding:HPRAD Repository 08/24/2018 [id number] Ambulatory [facility] ding:HPRAD Repository 08/24/2018/08/24/20 [id number] Ambulatory BMSBuilding: [place] 18 [facility].Critical access hospital Repository 07/18/2018 [id number] Ambulatory Building:N [facility] Repository 06/13/2018/06/13/20 [id number] [place], Ambulatory [address] ding:[place] Repository nt MedicRoom: Room 2 06/06/2018/06/06/[id number] ding:[facility] IO Repository 06/06/2018 [id number] Ambulatory [address] [place] [address] Repository 06/01/2018/06/01/20 [id number] [place], Ambulatory [address] ding:[place] Repository nt MedicRoom: Room 2 05/29/2018/05/29/20 [id number] Ambulatory [address] [facility] Repository ing:Sirena ndRoom: Room 1 05/24/2018/05/24/20 [id number] Ambulatory Building:OPG [facility] 18 SPORTSMEDAMB Three ER Repository 05/05/2018/05/05/20 [id number] Bernardino Thapa [address] ding[facility] 05/05/2018 [id number] Ambulatory [address] [place] [address] Repository 04/25/2018 [id number] Ambulatory [facility] ding:[place] Repository nt Medic 04/25/2018/04/25/20 [id number] [place], Ambulatory [address] ding:[place] Repository nt MedicRoom: Room 1 04/18/[id number] [facility] Cody Olivas [facility] Repository 03/28/2018/03/28/20 [id number] [place], [address] ding:[place] Repository nt MedicRoom: Room 1 03/15/2018/03/15/[id number] ding:SH.[facility] Repository 03/15/2018 [id number] Ambulatory [address] [place] [address] Repository 02/27/2018 [id number] Ambulatory Building:[facility] HCNHAMILTONR Three D Repository 01/17/2018 [id number] Ambulatory Building:N [facility] Repository 11/14/2017/11/14/19 [id number] [place], Ambulatory [address] ding:[place] Repository nt MedicRoom: Room 1 11/09/2017/11/09/19 [id number] Bernardino Thapa Ambulatory [address] Repository ing:Sirena ndRoom: Room 3 10/17/2017/10/17/19 [id number] [place], Ambulatory [address] ding:[place] Repository nt Medic PAYERS PAYERS ENCOUNTER GUARANTOR PAYER SUBSCRIBER SOURCE 10/10/2018 [facility] SPENCERDOB: Insurance:MedicarePoli SPENCERDOB: [facility] cy Number: Effective [id number] [address] Date:2018-10-[address] Repository [address] [place] [address], [id number] Name:CD:[id number] [place] [id number]: [id number], [place] [address]Zsw: [phone]: [phone]) (HP) [phone] (HP) (WP) 10/10/2018 [facility] Insurance:AARPPolicy SPENCERDOB: [facility] Number: Effective [id number] System Date:2018-10-10 [facility] Repository [id number] [address] [place] [address], Name:CD:[id number] [facility] [address]3487[place]WG, [place] [address]Lot: [phone]: [phone] (HP) (WP) 10/10/2018 [facility] SPENCERDOB: Insurance:MedicarePoli SPENCERDOB: Hospitals cy Number: [id number] [id number] [address], Date:Plan Name:Fay Ruelas [facility] [id number]: [phone]: (HP) (HP) 10/10/2018 [facility] Insurance:AARP SPENCERDOB: Hospit[facility] [id number] Repository Number: [address] [facility] [address] [id number] [address] [place] [address], Date:Plan Name:[facility] [id number]: (HP) 10/06/2018 ROSHAN N Primary [facility] SPENCERDOB: MEDICARE PRIMARYPolicy SPENCERDOB: [facility] Number: Effective [id number] System [facility] [address] Date:2018-10-06 [facility] [address] Repository [address] [place] [address], [id number] [address] [place] [address], [place] Name:CD:[id number] [place] [address]Pzm: [address]KQHMWPTKQ, [place] [address]Bhc: [phone]: [phone]) (HP) [phone] (HP) (WP) 10/06/2018 Secondary [facility] Insurance:1500 SPENCERDOB: [facility] AARP/UHCPolicy Number: [id number] System Effective 9 [facility] Repository Date:2018-10-[address] [place] [address], [id number] Name:CD:[id number] [place] [address]Lmn: [address]FHVAKSZ, [place] [address]WP: [phone]) (HP) [phone] (WP) 10/06/2018 [facility] SPENCERDOB: Insurance:MedicarePoli SPENCERDOB: [facility] cy Number: Effective [id number] Date:2018-10-[address] [facility] [address] Repository [address] [place] [address], [id number] [address] [place] [address] Name:CD:[id number] [address]Ucl: [id number], [place] [address]Nrc: [phone]: [phone]) (HP) [phone] (HP) (WP) 10/06/2018 Secondary [facility] Insurance:AARPPolicy SPENCERDOB: [facility] Number: Effective [id number] System Date:2018-10-06 [facility] Repository [id number], Name:CD:[id number] [facility] 535082[place], [place] [address]Chu: [id number]: [phone] () () 10/05/2018 ROSHAN Chaparro Primary ROSHAN Michaels [id number] CR Insurance:MEDICARE SPENCERDOB: Community [place], PART A BPolicy Number: [id number] [address]Fsn: [id number] Repository Date:2018-09-25 () 10/05/2018 Secondary ROSHAN Michaels Insurance:AARPPolicy SPENCERDOB: Community Number: [id number] Hospital [id number] Repository Date:2156-19-10[address]IRIQMUY, [place] [address]JT: 10/05/2018 Tertiary NOT GIVENUNK [place] Insurance:SELF PAY [facility] Number: Effective Repository Date:2018-10-04 08/31/2018 ROSHAN Chaparro Primary ROSHAN Michaels [id number] CR Insurance:MEDICARE SPENCERDOB: [facility], PART A BPolicy Number: [id number] Medical Center [address]Lib: [id number] Repository Date:2018-08-24 () 08/31/2018 Secondary ROSHAN Chaparro [place] Insurance:AARPPolicy SPENCERDOB: Community Number: [id number] Hospital [id number] Repository Date:8229-06-22BN [address]SMBHWVC, [place] [address]MY: 08/31/2018 Tertiary NOT GIVENUNK [place] Insurance:SELF PAY [facility] Number: Effective Repository Date:2018-08-30 08/29/2018 ROSHAN Chaparro Primary ROSHAN Michaels [id number] CR Insurance:MEDICARE SPENCERDOB: Community [place], PART A BPolicy Number: [id number] [place] [address]Dtp: [id number] Repository Date:2010-01-17 () 08/29/2018 Secondary ROSHAN N [place] Insurance:AARPPolicy SPENCERDOB: Community Number: [id number] Hospital [id number] Repository Date:4290-07-50OF [facility] [address]974WPOLCMD, [place] [address]WP: 08/29/2018 Tertiary NOT GIVENUNK [place] Insurance:SELF PAY [facility] Number: Effective Repository Date:2018-08-24 08/24/2018 BENICIA Primary ROSHAN [place] [id number] Insurance:MEDICARE SPENCERDOB: [facility] [place] [address] PART A BPolicy Number: [id number] [address], [id number] Repository [place] [address]Hps: Date:2018-08-24 () 08/24/2018 Secondary ROSHAN [place] Insurance:AARPPolicy SPENCERDOB: Community Number: [id number] Hospital [id number] Repository Date:1628-63-03TL [address]VOIGGKP, [place] [address]YU: 08/24/2018 Tertiary NOT GIVENUNK [place] Insurance:SELF PAY [facility] Number: Effective Repository Date:2018-08-24 08/24/2018 BENICIA Primary ROSHAN [place] [id number] Insurance:MEDICARE SPENCERDOB: [facility] [place] [address] PART A BPolicy Number: [id number] Hospital 377[facility], [id number] [place]ository [place] [address]Hrt: Date:2018-08-24 () 08/24/2018 Secondary ROSHAN [place] Insurance:AARPPolicy SPENCERDOB: Community Number: [id number] Hospital [id number] Repository Date:5057-02-70UJ [address]DKGVFJM, [place] [address]KA: 08/24/2018 Tertiary NOT GIVENUNK [place] Insurance:SELF PAY [facility] Number: Effective Repository Date:2018-08-24 08/24/2018 [facility] [id number] Insurance:MEDICARE SPENCERDOB: [facility] PART A BPolicy Number: [id number], [id number] [place]ository [place] [address]Ntf: Date:2018-08-14 () 08/24/2018 Secondary [facility] Insurance:AARPPolicy SPENCERDOB: [facility] Number: [id number] Hospital [id number] Repository Date:7111-64-36HN [address]WZOWAAV, [place] [address]MJ: 08/24/2018 Tertiary NOT GIVENUNK [place] Insurance:SELF PAY [facility] Number: Effective Repository Date:2018-08-24 07/18/2018 [facility] SPENCERDOB: Insurance:MEDICARE A SPENCERDOB: [place] [id number] AND BPolicy Number: [id number] [facility] [id number] 9 CR Center [address] [place] [address], Date:1959-76-93Hvud [address] [place] [address], Repository [place] [address]Hez: Name:[place] [id number]: () () 07/18/2018 Secondary [facility] Insurance:AARPPolicy SPENCERDOB: [place] Number: [id number] [facility] [id number] 9 CR Center Date:6254-98-55Cvuf [address] [place] [address], Repository Name:MANAGED [place]ARE [place] [address]Qin: () 06/13/2018 [facility] Primary Insurance:[address] [place] [address] SPENCERDOB: MEDICARE PRIMARYPolicy SPENCERDOB: [facility] Number: Effective [id number] [facility] [address] Date:2018-06-01 [facility] [address] Repository [address] [place] [address], [id number] [address] [place] [address], [place] Name:CD:[id number] [address]Ppz: [place]AN[place] [address]2423[place]IFRVTDANI[place] [id number]: [id number]: ([phone]) (HP) [phone] (HP) (WP) 06/13/2018 Secondary [facility] Insurance:1500 SPENCERDOB: [facility] AARP/CPolicy Number: [id number] System Effective [address] [place] [address] Repository Date:2018-06-[address] [place] [address], [id number] [place] Name:CD:[id number] O [address]Pfc: TANO [id number], [place] [address]OU: (800) (HP) [phone] (WP) 06/06/2018 [facility] SPENCERDOB: Insurance:MedicarePoli SPENCERDOB: [facility] cy Number: Effective [id number] [facility] [address] Date:2018-06-01 [facility] Repository [address] [place] [address], [id number] [facility], [place] Name:CD:[id number] [place] [id number]: [id number], [place] [address]Ahg: [id number]: [phone]) (HP) [phone] (HP) (WP) 06/06/2018 Secondary [facility] Insurance:AARPPolicy SPENCERDOB: [facility] Number: Effective [id number] System Date:2018-06-01 [facility] [address] Repository [id number] [address] [place] [address], Name:CD:[id number] [facility] 156773TMANLPBOELWEIN, [place] [address]Var: [id number]: [phone] (HP) (WP) 06/06/2018 [facility] SPENCERDOB: Insurance:MedicarePoli SPENCERDOB: Hospitals cy Number: [id number] Repository [facility] [address] [id number] [facility] [address] [place] [address], Date:Plan [facility] [address] [place] [address] [id number]: [id number]: (HP) (HP) 06/06/2018 Secondary [facility] Insurance:MedicarePoli SPENCERDOB: Hospitals cy Number: [id number] Repository [id number] [address] Date:Plan [facility] [address] [place] [address] [id number]: (HP) 06/06/2018 [facility] Insurance:AARP SPENCERDOB[facility] [id number] Repository Number: [address] [id number] [facility], Date:Plan Name:[facility] [id number]: (HP) 06/01/2018 [facility] Insurance:1500 [facility] SPENCERDOB: MEDICARE PRIMARYPolicy SPENCERDOB: [facility] Number: Effective [id number] System [facility] [address] Date:2018-05-30 [address] [facility] [address] [address] Repository [address] [place] [address], [id number] [address] [place] [address], [place] Name:CD:[id number] [address]Ybv: TANO Reyna52298HGVSCOUBH, [place] [address]Dvg: [phone]: [phone]) (HP) [phone] (HP) (WP) 06/01/2018 Secondary [facility] Insurance:1500 SPENCERDOB: [facility] Number: [id number] System Effective [address] Repository Date:2018-05-30 [address], 1254-30-52Lukn [place] Name:CD:[id number] O [address]Xgs: [address]TCBHFBT, [place] [address]WO: (800) (HP) [phone] (WP) 05/29/2018 [facility] Primary Insurance:1500 [facility] SPENCERDOB: MEDICARE PRIMARYPolicy SPENCERDOB: [facility] Number: Effective [id number] [address] Date:2017-05-[address] Repository [address], [id number] [place], [place] Name:CD:[id number] [place] [address]Jji: [address] [place], [place] [address]Tel: [phone]: [phone]) (HP) [phone] (HP) (WP) 05/29/2018 Secondary [facility] Insurance:1500 SPENCERDOB: [facility] Number: [id number] System Effective [address] Repository Date:2017-05-30 [address], 8988-71-31Vnsp [place] Name:CD:[id number] O [address]Uvp: [address]XPUWQUJ, [place] [address]AO: (800) (HP) [phone] (WP) 05/24/2018 [facility] Primary [facility] SPENCERDOB: Insurance:MEDICAREPoli SPENCERDOB: [facility] Repository cy Number: [id number] CR [id number] [address], Date:4122-67-40XSN J15 [address], [place] [address]Cdf: PART A CLAIMSPO [facility] [address]Esv: [address]WSTJVPQPS, [place] (HP) [address]LL: [phone]) (HP) [phone] 05/24/2018 [facility] Insurance:AARPPolicy SPENCERDOB: Three Repository Number: [id number] Date:3659-45-09AQ [address] [place] [address], [id number] [facility] [address]Wuu: [address]DA: [phone] (HP) 05/05/2018 [facility] SPENCERDOB: Insurance:MedicarePoli SPENCERDOB: [facility] cy Number: Effective [id number] [address] Date:2018-05-[address] [facility] [address] Repository [address] [place] [address], [id number] [address] [place] [address] Name:CD:[id number] [facility] [address]Mcy: [id number], [place] [address]Lty: [id number]: [phone]) (HP) [phone] (HP) (WP) 05/05/2018 [facility] Insurance:AARPPolicy SPENCERDOB: [facility] Number: Effective [id number] System Date:2018-05-[address] Repository [id number] [facility], Name:CD:[id number] [facility] 934494QQIFNOC, [place] [address]Dap: [id number]: [phone] (HP) (WP) 05/05/2018 [facility] SPENCERDOB: Insurance:MedicarePoli SPENCERDOB: [facility] cy Number: [id number] [id number] [address] [facility], Date:Plan Name:Fay Antunez [address], [facility] [id number]: [phone]: (HP) (HP) 05/05/2018 Secondary [facility] Insurance:MedicarePoli SPENCERDOB: Hospitals cy Number: [id number] Repository [id number] [address] Date:Plan Name:Fay Ruelas [facility] [id number]: (HP) 05/05/2018 [facility] Insurance:AARP SPENCERDOB: Hospitals SupplementPolicy [id number] Repository Number: [address] [id number] [facility], Date:Plan Name:Health [place] [id number]: (HP) 04/25/2018 [facility] Primary Insurance:1500 [facility] SPENCERDOB: [facility]ICARE [facility]Edge[facility] Hospitaly SPENCERDOB: [facility] [id number] Number: Effective [id number] Date:2018-04-[address] [facility] [facility] [address] Repository [address] [place] [address], [id number] [address] [place] [address] Name:CD:[id number] O [place] [id number]: [id number]: [address]DSSIJZGGO, [place] [address]OB: (866) (HP)Tel: (000) (HP) [phone] (WP) 04/25/2018 Secondary [facility] Insurance:1500 SPENCERDOB: [facility] AARP/UHCPolicy Number: [id number] System Effective [address] Repository Date:2018-04-25 - [facility], 1925-46-96Ihvp [place] [id number]: Name:CD:[id number] O [address]VXLOSND, [place] (HP)Tel: [phone]: (WP) [phone] 04/25/2018 [facility] Primary Insurance:1500 [facility] SPENCERDOB: MEDICARE PRIMARYPolicy SPENCERDOB: [facility] Number: Effective [id number] System [facility] [address] Date:2018-03-[address] Repository [address] [place] [address], [id number] [address] [place] [address] Name:CD:[id number] O [place] [id number]: [id number]: [address] [place] [address]ZY: (063) (HP)Tel: 000HP) [phone] (WP) 04/25/2018 Secondary [facility] Alevism Insurance:1500 SPENCERDOB: [facility] AARP/[facility] Number: [id number] System Effective [address] Repository Date:2018-03-[address] [place] [address], [id number] [place] [id number]: Name:CD:[id number] O [address]NPNUOIG, [place] (HP)Tel: [phone]) [phone]: (WP) [phone] 04/18/2018 Primary NOT [id number] [facility] Insurance:CorporatePol [facility] Number: [facility] [id number] [place], [place] Repository Date: Name:Briele2730 [facility] CenterycCaroMont Regional Medical CentervdShickley, [place] [address]MB: 03/28/2018 [facility] Primary Insurance:1500 [facility] SPENCERDOB: MEDICARE PRIMARYPolicy SPENCERDOB: [facility] Number: Effective [id number] System [facility] [address] Date:2018-03-28 [address] [address] Repository [address] [place] [address], [id number] [address] [place] [address] Name:CD:[id number] O [place] [id number]: [id number]: [address] [address]APGXMKXPNCARL [place] [address]QH: (866) (HP)Tel: (000) (HP) [phone] (WP) 03/28/2018 [facility] Insurance:1500 SPENCERDOB: [facility] AARP/UHCPolicy Number: [id number] System Effective [address] Repository Date:2018-03-[address] [place] [address], [id number] [place] [id number]: Name:CD:[id number] O [address]VNCXYER, [place] (HP)Tel: (000) [phone]: (WP) [phone] 03/15/2018 [facility] SPENCERDOB: Insurance:MedicarePoli SPEOKERDOB: [facility] cy Number: Effective [id number] [address] Date:2018-03-[address] Repository [address] [place] [address], [id number] [address] [place] [address] Name:CD:[id number] [facility] [id number]: [id number]: [id number], [place] [id number]: (800) (HP)Tel: (000) (HP) [phone] (WP) 03/15/2018 [facility] Insurance:AARPPolicy SPENCERDOB: [facility] Number: Effective [id number] System Date:2018-03-[address] Repository [id number] [address] [place] [address], Name:CD:[id number] [facility] [id number]: 459079JIDTZKT, [place] [address]VR: (800) (HP) [phone] (WP) 03/15/2018 [facility] SPENCERDOB: Insurance:MedicarePoli SPENCERDOB: Hospitals cy Number: [id number] [id number] [address] [facility] [facility] [address] [place] [address], Date:Plan Name:Fay Antunez [facility], [facility] [id number]: [id number]: (HP) (HP) 03/15/2018 [facility] Insurance:MedicarePoli SPENCERDOB: Hospitals cy Number: [id number] Repository [id number] [address] Date:Plan Name:Jordanre B [facility], [place] [id number]: (HP) 03/15/2018 [facility] Insurance:AARP SPENCERDOB: Hospitals SupplementPolicy [id number] Repository Number: 9 [facility] [id number] [address] [place] [address], Date:Plan Name:[facility] [id number]: (HP) 01/17/2018 [facility] SPENCERDOB: Insurance:MEDICARE A SPENCERDOB: [facility] Number: [id number] [facility] [id number] [address] [facility], Date:4607-76-48Ydrp [facility], Repository [place] [address]Uos: Name:[place] [address]Gqx: (HP) (HP) 01/17/2018 Secondary [facility] Insurance:AARPPolicy SPENCERDOB: University Number: [id number] [facility] [id number] [address] Date:1670-70-05Nauv [place], Repository Name:[place] [address]Gti: (HP) 11/14/2017 [facility] Primary Insurance:[address] [place] [address] SPENCERDOB: MEDICARE PRIMARYPolicy SPENCERDOB: [facility] Number: Effective [id number] System [facility] [address] Date:2017-11-[address] Repository [address] [place] [address], [id number] [facility], [place] Name:CD:[id number] O [place] [id number]: [id number]: TANO 14217NMSYJPLALCRYS [address]QA: (866) (HP)Tel: (000) (HP) [phone] (WP) 11/14/2017 Secondary [facility] Insurance:1500 SPENCERDOB: [facility] AAR/[facility]ITALol[facility] Number: [id number] System Effective [facility] [address] Repository Date:2017-11-14 - [facility], [id number] [place] [id number]: Name:CD:[id number] O TANO 392891HLTRHCR, [place] (HP)Tel: (000) [phone]: (WP) [phone] 11/09/2017 [facility] Primary Insurance:1500 [facility] SPENCERDOB: MEDICARE PRIMARYPoly SPENCERDOB: [facility] Number: Effective [id number] System [facility] [address] Date:2017-11-[address] [facility] [address] Repository [address] [place] [address], [id number] [facility], [place] Name:CD:[id number] O [place] [id number]: [id number]: [address]JXWHOGKOVCRYS [address]DX: (866) (HP)Tel: (000) (HP) [phone] (WP) 11/09/2017 Secondary [facility] Insurance:1500 SPENCERDOB: [facility] Number: [id number] System Effective [address] Repository Date:2017-11-07 - [address] [place] [address], [id number] [place] [id number]: Name:CD:[id number] O [address]REUAQCN, [place] (HP)Tel: (095) [phone]: (WP) [phone] 10/17/2017 [facility] Primary Insurance:1500 [facility] SPENCERDOB: MEDICARE PRIMARYPolicy SPENCERDOB: [facility] [id number] Number: Effective [id number] Date:2017-10-[address] Repository [address] [place] [address], [id number] [address] [place] [address] Name:CD:[id number] O [place] [id number]: [id number]: [address]ZKIYOOCXE, [place] [address]NI: (866) (HP)Tel: (000) (HP) [phone] (WP) 10/17/2017 Secondary [facility] Insurance:1500 SPEOKERDOB: [facility] AARP/CPolicy Number: [id number] System Effective [address] Repository Date:2017-10-[address] [place] [address], [id number] [place] [id number]: Name:CD:[id number] O [address]AKFEPMA, [place] (HP)Tel: [phone]) [phone]: (WP) [phone]
--- NOTE | 2018-12-25 09:41 | HP.PT.NRP ---
HP - Discharge Summary (1) - Patient Information HERO ZARAGOZA was seen in my office for initial evaluation on 08/29/18. The following Plan of Care was established for this patient: Initial Frequency: 1x/Week Initial Duration: 1 Week - Anticipated Interventions Patient/Client Instruction: Educate patient on: Plan of Care For the Purpose of:: To decrease pain, To decrease swelling/inflammation, To improve muscle performance and motor function, To improve ability to perform ADL's, To increase tolerance to activity/condition/position, To improve gait and locomotor functions, To improve health of tissue, To decrease soft tissue restriction, To increase flexibility/ROM Therapeutic Exercise to Include: Strength training, Coordination, Flexibilty training, Gait and locomotor training, Neuromotor development, Active ROM For the Purpose of:: To decrease pain, To decrease swelling/inflammation, To increase ROM, To improve nutrient delivery to tissue, To improve muscle performance and motor function, To increase tolerance to activity/condition/position, To improve performance and independence with ADL's, To improve gait and locomotor functions, To improve health of tissue, To decrease soft tissue restriction, To increase flexibility/ROM, To improve safety with gait This patient was last seen in our office 08/29/18. Pertinent comments regarding their Physical therapy will appear below: Pt did not reschedule 1 additional appointment for a HEP. JENNA PT at this time. At this point I will be discontinuing this patient from physical therapy. I would be happy to see this patient again in the future if found appropriate by the physician. Thank you! Jeniffer Mejía, MPT
== END 2018-08-29 19:00 | disposition home or self-care (01) ==
LOC: PT 13:52
PROVIDERS: Family Provider Internal Medicine; PCP Internal Medicine; Referring Provider Orthopaedic Surgery; Visit Provider Orthopaedic Surgery
DX: M17.12 Unilateral primary osteoarthritis, left knee (principal); M54.16 Radiculopathy, lumbar region
CPT/HCPCS: 97162

== ENCOUNTER 2018-11-01 05:22 | Inpatient (IN) | payer MEDICARE, OTHER, SELFPAY ==
[2018-10-05 12:59] VITALS: BMI 25.1
[2018-10-25 14:30] VITALS: BP 159/85; PULSE 71; RESP 18; TEMP 36.4; O2SAT 100; BMI 26.4
[2018-10-25 17:18] LABS: AST(SGOT) 18 U/L (15-37); Alanine Aminotransfer ALT/SGPT 11 U/L (16-61); Albumin, Serum 3.8 g/dL (3.2-5.0); Alkaline Phosphatase 103 U/L (45-117); Anion Gap 6 (5-15); BUN 19 mg/dL (7-18); BUN/Creat Ratio 19.3 RATIO (10-20); Bilirubin, Direct 0.15 mg/dL (0.00-0.30); Calcium,Total 8.5 mg/dL (8.5-10.1); Chloride 105 mmol/L (98-107); Creatinine, Serum 0.99 mg/dL (0.70-1.30); EST Glomerular Filtration Rate 79 mL/min (>60); Est Glom Filt Rate - Afr Amer 96 mL/min (>60); Estimated Creatinine Clearance 68.62 ml/min; Glucose 83 mg/dL (74-106); Protein, Total 7.8 g/dL (6.4-8.2); Sodium Level 139 mmol/L (136-145)
[2018-10-25 17:31] LABS: Hematocrit 46.1 % (40-54); Hemoglobin 14.8 g/dl (13.0-16.5); Mean Corpuscular Volume 91.5 fL (80-94); Red Blood Count 5.04 M/mm3 (4.6-6.2); White Blood Count 6.2 K/mm3 (4.4-11.0)
[2018-10-25 17:32] LABS: Absolute Lymphocyte Count 1.68 X10^3/ul (0.83-4.51); Absolute Neutrophil Count 3.7 X10^3/uL (2.0-7.7); Basophil% 0.5 % (0-1); Eosinophils% 2.1 % (0-5); Lymphocyte # 1.68 X10^3/ul (4.0); Lymphocyte % 27.1 % (19-41); Mean Corp Hgb Conc 32.1 g/gl (32-36); Mean Corpuscular Hgb 29.4 pg (27.0-32.0); Mean Platelet Vol. 11.8 fl (6.2-12.0); Monocyte# 0.62 X10^3/uL; Neutrophil # 3.71 X10^3/uL (2.7-7.7); POSITIVE COUNT NO; POSITIVE DIFFERENTIAL NO; POSITIVE MORPHOLOGY NO; Platelet Count 203 K/mm3 (150-450); RBC Distribution Width CV 14.9 % (11.6-14.6); RBC Distribution Width SD 48.4 fl (35.1-43.9)
[2018-10-25 17:33] LABS: Basophil# 0.03 X10^3/uL; Eosinophil# 0.13 X10^3/uL
[2018-10-25 18:46] LABS: Prothrombin Time (Protime)PT. 13.6 SECONDS (11.7-14.9)
[2018-10-25 18:47] LABS: Partial Thromboplast Time 33.6 Seconds (24.1-36.2)
[2018-11-01] VITALS (12 sets, daily range): BP systolic 109–158; BP diastolic 51–98; PULSE 77–113; RESP 16–18; TEMP 36.6–37.1; O2SAT 95–100; BMI 26.4
[2018-11-01] MEDS: oxyCODONE HCl Cr 10 MG Tablet PO (06:09)
[2018-11-01] MEDS: Cefazolin 2 GM in 0.9% Normal Saline 100 ML IV ×3 (07:51→23:04)
[2018-11-01] MEDS: Morphine 4 MG/ML Syringe (08:36)
[2018-11-01] MEDS: Betamethasone/Betamethasone 30 MG/5 ML Vial (08:36)
[2018-11-01] MEDS: Bupivacaine Mpf 0.5% 30 ML VIAL (08:36)
--- NOTE | 2018-11-01 10:32 | RAD_ITS ---
STUDY: X-RAY - LEFT KNEE REASON FOR EXAM: Male, 73 years old. Total knee replacement. TECHNIQUE: 2 view(s) of the knee. COMPARISON: Comparison is made with prior study dated August 24, 2018. FINDINGS: The patient is status post total knee replacement. There is good alignment. Postoperative soft tissue changes. RAD/Knee 1 or 2 Views IMPRESSION: Status post total knee replacement. There is good alignment. Postoperative soft tissue changes. Electronically Signed: Kayden Moon MD at 14:14 EST , Service support ,
[2018-11-01] MEDS: Scopolamine 1mg/72hr Patch 1 PATCH TD (10:59)
[2018-11-01] MEDS: Lactated Ringers 1,000 ML 80 ML IV ×2 (11:04→22:57)
--- NOTE | 2018-11-01 11:24 | OP.PCM_ITS ---
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 Risk benefits and alternatives were reviewed including; risk of bleeding, infection, nerve artery and tissue damage, continued pain, postoperative stiffness, venous thromboembolism, need for postoperative rehabilitation, mechanical feel to the knee, and expected postoperative course. Procedure: The patient was met in the preoperative holding area. The operative extremity was identified by both patient and physician and was marked. Patient was met by anesthesia. An adductor canal block was placed by anesthesia postoperatively. The patient was brought back to the operating room on a wheeled cart and transferred to the operating table in the supine position. Anesthesia was started. A well-padded tourniquet was placed on the operative extremity. The patient was prepped and draped in the usual sterile fashion. A timeout was called to ensure the proper patient procedure and extremity were being contemplated. An Esmarch was used to exsanguinate the extremity. The tourniquet was inflated. A 10 blade scalpel was used to make a midline incision down through the skin and subcutaneous tissue. Skin retractors placed. Bovie was used to perform meticulous hemostasis. full-thickness flaps were elevated medial and lateral along the joint capsule. A deep blade scalpel was used to perform a medial parapatellar arthrotomy. The knee was brought to full extension. A Bovie was used to release the soft tissues off the most proximal aspect of the medial tibial plateau a three-quarter inch curved osteotome was also used for this process. The infrapatellar fat pad was excised. The fat pad was excised partially anterior lateral portion the anterior medial was elevated from the femur. the patella was everted. The knee was brought into flexion. An intramedullary drill was used followed by flexible intramedullary guide lolis. The distal femoral cutting block was placed and set to remove 10 mm of bone secondary to flexion contracture and 5 degrees of valgus. The block was secured with pins and an oscillating saw was used to complete the distal femoral cut. During this, and all bony cuts retractors were used to protect the collateral ligaments. At this point a femoral sizer was used to measure the AP dimension of the femur. The sizer block was pinned in 3 degrees of external rotation. The sizing block was removed and the appropriately sized 4-in-1 cutting block was placed over the previously made pinholes. It was checked with an livia wing and the block was secured with pins. An oscillating saw was used to complete the anterior cut followed by the posterior cut followed by the posterior chamfer cut followed by the anterior chamfer cut. The block was removed as well as the fragments. A ronguer was used to remove excess osteophytes. The medial and lateral meniscus were excised as well as the ACL. A box cutting guide was attached to the distal end of the femur and pinned into place. The blunt end of an osteotome was placed over the tibial plateau and a reciprocating saw was used on the odonnell for the box cut. An osteotome was used at the base of the box. The cutting guide was removed and a [place] and a Bovie were used to remove the bone and PCL from the box. A rasp was also used. At this point a PCL retractor was placed and an intramedullary drill was passed down the tibial canal followed by a solid intramedullary guide lolis. The tibial cutting block was attached and set to remove 9 mm of bone from the high side. This was checked with an external alignment drop lolis for slope and tilt. It was pinned into place. An oscillating saw was used to complete the tibial plateau cut and the block was removed. A large osteotome was used to elevate the fragment and a Osvaldo and a Bovie were used to free the fragment from the surrounding soft tissue. A rongeur was once again used to remove osteophytes a lamina traffic routing engineer was used to evaluate the posterior capsular structures. A three-quarter inch curved osteotome was used to remove posterior osteophytes. A spacer block was inserted in both extension and flexion to ensure adequate spacing. Trials were inserted full extension and flexion were achieved in varus and valgus stability throughout range of motion were seen, balancing techniques were performed. At this point the attention was turned towards the patella. A caliper was used to ensure sufficient bone stock to remove 10 mm of bone. A reamer was used to perform this task. Lug holes were made for the appropriate-sized patella. The patella trial was inserted and there was good patellar tracking with knee range of motion. The tibial baseplate was allowed to float into rotation and was marked on the tibial plateau with a Bovie. Trials were removed. The tibial baseplate was then sized and its preparation was completed with a fin punch. The knee was thoroughly irrigated. A posterior capsular injection was performed with our standard cocktail. The knee was brought into flexion and irrigated again. The tibial baseplate was cemented. Excess cement was removed with curettes. The femoral component was cemented. The polyethylene component was inserted. The knee was brought into full extension and placed on a bump. The patellar component was cemented. At this point a Betadine rinse was placed and thoroughly irrigated after a few minutes. At this point all gloves were changed. The knee was thoroughly irrigated the joint capsule was closed with #1 Ethibond. Tourniquet was let down followed by 0 Vicryl and 2-0 Vicryl in the subcutaneous tissues. followed by todd in the skin. Dressing was applied in the form of Xeroform 4 x 4 ABD web roll and an Kev wrap from the foot to the groin. The patient tolerated the procedure well, all counts were correct patient was brought back to the PACU in stable condition.
[2018-11-01] MEDS: Amantadine 100 MG Capsule PO (13:51)
[2018-11-01] MEDS: Acetaminophen 500 MG Tablet 1000 MG PO ×2 (13:51→22:56)
[2018-11-01] MEDS: CARBIDOPA/LEVODOPA CR 50/200 Tablet PO (15:39)
[2018-11-01] MEDS: Tamsulosin HCl 0.4 MG Capsule PO (17:41)
[2018-11-01] MEDS: Senna/Docusate Sodium 1 Tablet 2 TABLET PO (22:54)
[2018-11-01] MEDS: APIXABAN 2.5 MG TABLET PO (22:57)
[2018-11-02 03:00] VITALS: BP 130/74; PULSE 71; RESP 16; TEMP 37.2; O2SAT 96
[2018-11-02] MEDS: Ketorolac 15 MG/ML Vial IV ×2 (03:44→10:03)
[2018-11-02] MEDS: Amantadine 100 MG Capsule PO (06:07)
[2018-11-02] MEDS: CARBIDOPA/LEVODOPA CR 50/200 Tablet PO ×3 (06:07→15:33)
[2018-11-02] MEDS: Acetaminophen 500 MG Tablet 1000 MG PO ×3 (06:08→21:25)
[2018-11-02] MEDS: Donepezil HCl 5 MG Tablet PO (06:08)
[2018-11-02 06:59] LABS: Hematocrit 40.3 % (40-54); Hemoglobin 13.1 g/dl (13.0-16.5); Mean Corp Hgb Conc 32.5 g/gl (32-36); Mean Corpuscular Hgb 29.5 pg (27.0-32.0); Mean Corpuscular Volume 90.8 fL (80-94); Mean Platelet Vol. 11.1 fl (6.2-12.0); Platelet Count 179 K/mm3 (150-450); RBC Distribution Width CV 14.8 % (11.6-14.6); RBC Distribution Width SD 49.4 fl (35.1-43.9); Red Blood Count 4.44 M/mm3 (4.6-6.2); White Blood Count 10.2 K/mm3 (4.4-11.0)
[2018-11-02 07:07] LABS: Scan Indicated on CBC? Y/N NO
[2018-11-02 07:14] LABS: Anion Gap 7 (5-15); BUN 14 mg/dL (7-18); BUN/Creat Ratio 12.8 RATIO (10-20); Calcium,Total 8.2 mg/dL (8.5-10.1); Chloride 107 mmol/L (98-107); Creatinine, Serum 1.09 mg/dL (0.70-1.30); EST Glomerular Filtration Rate 70 mL/min (>60); Est Glom Filt Rate - Afr Amer 85 mL/min (>60); Estimated Creatinine Clearance 62.32 ml/min; Glucose 113 mg/dL (74-106); Potassium 3.9 mmol/L (3.5-5.1); Sodium Level 139 mmol/L (136-145)
--- NOTE | 2018-11-02 07:36 | PCM.PN.ORT ---
Patient Problems: Active and Suspected Problems (Last Reviewed 08/31/18 @ 14:57 by Chasidy Ramsey) S/P total knee arthroplasty (Acute) Subjective: Seen and examined. Doing well. No complaints at this point. Pain controlled. Is no nausea vomiting shortness of breath chest pain or fever. Ambulating to the bathroom with assistance. Objective: Awake and alert no acute distress. Dressing clean dry and intact. Neurovascularly intact EHL tibialis anterior and gastrocsoleus muscles. Compartments soft. - Physical Exam General: Alert, Cooperative Vital Signs Temp Pulse Resp BP Pulse Ox 99 F 71 16 130/74 H 96 11/02/18 03:00 11/02/18 03:00 11/02/18 03:00 11/02/18 03:00 11/02/18 03:00 Oxygen Delivery Method Room Air Weight: 183 lb 13.848 oz Body Mass Index (BMI) 26.4 Intake and Output for Last 24 Hours 10/31/18 11/01/18 11/02/18 23:59 23:59 23:59 Intake Total 2041 / 2041 935 / 935 Output Total 550 / 550 800 / 800 Balance 1491 / 1491 135 / 135 Laboratory Tests Past 24 Hrs 11/02/18 11/02/18 06:40 06:40 WBC 10.2 RBC 4.44 L Hgb 13.1 Hct 40.3 MCV 90.8 MCH 29.5 MCHC 32.5 RDW 14.8 H RDW Differential 49.4 H Plt Count 179 MPV 11.1 Sodium 139 Potassium 3.9 Chloride 107 Carbon Dioxide 25.0 Anion Gap 7 BUN 14 Creatinine 1.09 Estim Creat Clear Calc 62.32 Est GFR (MDRD) Af Amer 85 Est GFR (MDRD) Non-Af 70 BUN/Creatinine Ratio 12.8 Glucose 113 H Calcium 8.2 L Medical Necessity - Tobacco Use Smoking Status: Never smoker Assessment/Plan All Active Problems (Last Reviewed 08/31/18 @ 14:57 by Chasidy Ramsey) S/P total knee arthroplasty (Acute) Continue physical therapy weightbearing as tolerated. Started on DVT prophylaxis Eliquis SCDs and STEFANIA hose. Dressing will remain on until tomorrow morning to be changed by nursing and cleaned with Betadine ABD pad up will be applied followed by a thigh-high STEFANIA hose. Which will begin daily dressing changes at that point. Likely discharge tomorrow with home health care. His pain is controlled currently no further changes to his regimen at this point. Will resume aspirin upon discharge home
[2018-11-02 08:20] VITALS: BP 115/64; PULSE 78; RESP 18; TEMP 37.1; O2SAT 95
[2018-11-02] MEDS: Famotidine 20 MG Tablet PO (10:02)
[2018-11-02] MEDS: Senna/Docusate Sodium 1 Tablet 2 TABLET PO (10:02)
[2018-11-02] MEDS: APIXABAN 2.5 MG TABLET PO ×2 (10:03→21:26)
[2018-11-02] MEDS: Polyethylene Glycol 3350 17 GM PACKET PO (10:03)
[2018-11-02] MEDS: 0.9% NaCl Peripheral Flush Adult/Peds IV (10:04)
--- NOTE | 2018-11-02 10:35 | CASEMGMT ---
RN CM Face to Face with patient for initial transition planning/care coordination assessment. RN CM introduced self and role at [facility]. Patient sitting in chair, alert and oriented, at bedside. Patient willing to participate in assessment and is able to answer all questions appropriately. Care providers, pharmacy, and demographics verified. Patient wishes to discharge home and would like [facility] for therapy at discharge. List of HHC provided and agreeable to [facility]. Patient states he has no further needs or concerns at this time. RN CM sent referral to [facility] and they are able to accept the patient. CM to follow for discharge planning needs that may arise. PCP:Dr Hastings Specialists: [facility] neurologist Preferred Pharmacy: [facility] Insurance: [facility] Prescription Benefit: yes Living Will/HPOA: none LNOK: Living Arrangements: Patient lives with in 2 story home with potential for bed and bath on first floor. Patient was independent at home. Transportation: Self/ DME/HHC: Patient will need walker prior to discharge. Family had provided on but too short. RN CM will assist with setting up walker but states family was going to try and find another one at the appropriate height Disposition Plan: Patient to discharge home with HHC, family support, and follow-up plans in place. Maryanne PICKARD, RN, CM
[2018-11-02 15:37] VITALS: BP 141/81; PULSE 72; RESP 14; TEMP 36.5; O2SAT 98
[2018-11-02 21:07] VITALS: BP 156/83; PULSE 76; RESP 16; TEMP 36.7; O2SAT 98
[2018-11-03 02:27] VITALS: BP 160/83; PULSE 73; RESP 14; TEMP 36.6; O2SAT 100
[2018-11-03] MEDS: Acetaminophen 500 MG Tablet 1000 MG PO (06:10)
[2018-11-03] MEDS: CARBIDOPA/LEVODOPA CR 50/200 Tablet PO (06:10)
[2018-11-03 07:28] LABS: Mean Corp Hgb Conc 33.3 g/gl (32-36); Mean Corpuscular Hgb 30.3 pg (27.0-32.0); Mean Corpuscular Volume 90.9 fL (80-94); Mean Platelet Vol. 11.6 fl (6.2-12.0); Platelet Count 169 K/mm3 (150-450); RBC Distribution Width CV 14.5 % (11.6-14.6); RBC Distribution Width SD 47.4 fl (35.1-43.9); Red Blood Count 4.29 M/mm3 (4.6-6.2); White Blood Count 9.6 K/mm3 (4.4-11.0)
[2018-11-03 07:30] LABS: Scan Indicated on CBC? Y/N NO
--- NOTE | 2018-11-03 07:33 | PCM.PN.ORT ---
Patient Problems: Active and Suspected Problems (Last Reviewed 08/31/18 @ 14:57 by Chasidy Ramsey) S/P total knee arthroplasty (Acute) Subjective: Seen and examined doing well no complaints pain controlled no fever chills nausea vomiting shortness of breath chest pain ambulating well physical therapy deemed safe for DC home with home health care Objective: Awake alert no acute distress examination of left lower extremity mild bleeding at the incision site no concerning signs for infection compartments soft compressible negative Homans neurovascular intact - Physical Exam General: Cooperative, No apparent distress Extremities: Capillary Refill Less than 3 Seconds Vital Signs Temp Pulse Resp BP Pulse Ox 97.9 F 73 14 160/83 H 100 11/03/18 02:27 11/03/18 02:27 11/03/18 02:27 11/03/18 02:27 11/03/18 02:27 Oxygen Delivery Method Room Air Weight: 183 lb 13.848 oz Body Mass Index (BMI) 26.4 Intake and Output for Last 24 Hours 11/01/18 11/02/18 11/03/18 23:59 23:59 23:59 Intake Total 2041 / 2041 935 / 935 Output Total 550 / 550 800 / 800 Balance 1491 / 1491 135 / 135 Laboratory Tests Past 24 Hrs 11/03/18 05:40 WBC 9.6 RBC 4.29 L Hgb 13.0 Hct 39.0 L MCV 90.9 MCH 30.3 MCHC 33.3 RDW 14.5 RDW Differential 47.4 H Plt Count 169 MPV 11.6 Medical Necessity - Tobacco Use Smoking Status: Never smoker Assessment/Plan All Active Problems (Last Reviewed 08/31/18 @ 14:57 by Chasidy Ramsey) S/P total knee arthroplasty (Acute) DC home with home health care for home physical therapy Eliquis 2.5 twice daily for 2 weeks follow-up in the office in 2 weeks oxycodone
--- NOTE | 2018-11-03 07:40 | DCINST_ITS ---
Discharge Diet: No Restrictions Discharge Activity: Return to Normal Activity May shower in (days): 1 - day Ice area for (Minutes): 1 Weight Bearing Status: Weight bearing as tolerated Keep extremity elevated above heart level: Operative Extremity Call your doctor if your incision/area has: Foul Smelling Discharge Call your doctor if you observe: Fever of 101 or Higher, Inability to urinate, Inability to have a bowel movement, Shortness of breath, Chest pain Change Dressing in (Days):: 1 - day, then daily Additional Dressing/Incision Instructions:: remove dressing daily to shower begining POD#3 then replace with ABD under issac hose. Additional Instructions: Encourage FULL knee flexion and extension one time EVERY TIME you get up and down and MULTIPLE X / DAY Allergies/Adverse Reactions: Allergies No Known Allergies Allergy (Verified 10/25/18 14:04) Medications to take at Discharge Amantadine [Symmetrel] 100 mg PO DAILY 03/06/14 Polyethylene Glycol 3350 [Miralax] 17 gm PO DAILY 03/06/14 donepezil 5 mg tablet 5 mg PO DAILY 10/05/18 Aspirin 81 mg PO DAILY 10/25/18 Carbidopa/Levodopa [Carbidopa-Levo ER 50-200 Tab] 2 tab PO TID 10/25/18 Famotidine [Pepcid] 20 mg PO DAILY 10/25/18 Apixaban [Eliquis] 2.5 mg PO BID 14 Days #28 tablet 11/03/18 Oxycodone [Oxyir] 5 mg PO Q4H PRN PRN #50 tablet 11/03/18 The following prescriptions were given: Oxycodone [Oxyir] 5 mg PO Q4H PRN PRN #50 tablet PRN Reason: Mod-Severe Pain (4-10/10) Apixaban [Eliquis] 2.5 mg PO BID 14 Days #28 tablet Primary Care Physician: Tomeka Hastings [Primary Care Provider] - Test Results: Test results from this visit will be discussed in further detail at your follow- up appointment, if applicable. Please Follow Up With: Kemar Rucker DO - 2wks Proposed Discharge Date: 11/03/18
--- NOTE | 2018-11-03 07:48 | PCM.DC.SUM ---
Discharge Date and Diagnosis - Problem List Patient Problems: Active and Suspected Problems (Last Reviewed 08/31/18 @ 14:57 by Chasidy Ramsey) S/P total knee arthroplasty (Acute) Date of Admission: 11/01/18 Date of Discharge: 11/03/18 - Primary Discharge Diagnosis Active and Suspected Problems (Last Reviewed 08/31/18 @ 14:57 by Chasidy Ramsey) S/P total knee arthroplasty (Acute) - Secondary Discharge Diagnosis Chronic Problems (Last Updated 08/31/18 @ 14:58 by Chasidy Ramsey) DDD (degenerative disc disease), lumbar (Chronic) Scoliosis (Chronic) right Hospital Course and Treatment Summary of Care Provided: The patient has with long-standing history of knee DJD and has failed conservative treatment. He wished to undergo elective total knee arthroplasty and underwent the aforementioned procedure on the admission date without complications. He did receive pre-and postoperative antibiotics which were discontinued within 23 hours postoperatively. He did receive a spinal anesthesia and a adductor canal block and his pain was controlled postoperatively with p.o. and IV pain medication. There was minimal intraoperative blood loss he did receive 2 g of tranexamic acid and his vital signs and labs were stable postoperatively and he did not require a blood transfusion. He was seen by physical therapy and did progress with his ambulation. Postoperatively he was started on both mechanical and chemical DVT prophylaxis for which she will continue his Eliquis 2.5 mg twice daily for 2 additional weeks post hospital discharge. His dressing was changed in the morning of postop day #2 without any concerning signs. He will begin showering on postop day #3 with daily dressing changes. Encouraged him to achieve full range of motion as soon as possible he will receive home health care and home physical therapy and will follow-up in the office in 2 weeks for staple removal. There is no intrahospital complications . Patient Problems: Active and Suspected Problems (Last Reviewed 08/31/18 @ 14:57 by Chasidy Ramsey) S/P total knee arthroplasty (Acute) - Physical Exam Vital Signs Temp Pulse Resp BP Pulse Ox 97.9 F 73 14 160/83 H 100 11/03/18 02:27 11/03/18 02:27 11/03/18 02:27 11/03/18 02:27 11/03/18 02:27 Oxygen Delivery Method Room Air Weight: 183 lb 13.848 oz Body Mass Index (BMI) 26.4 Intake and Output for Last 24 Hours 11/01/18 11/02/18 11/03/18 23:59 23:59 23:59 Intake Total 2041 / 2041 935 / 935 Output Total 550 / 550 800 / 800 Balance 1491 / 1491 135 / 135 Laboratory Tests Past 24 Hrs 11/03/18 05:40 WBC 9.6 RBC 4.29 L Hgb 13.0 Hct 39.0 L MCV 90.9 MCH 30.3 MCHC 33.3 RDW 14.5 RDW Differential 47.4 H Plt Count 169 MPV 11.6 Discharge Diet: No Restrictions Discharge Activity: Return to Normal Activity May shower in (days): 1 - day Ice area for (Minutes): 1 Weight Bearing Status: Weight bearing as tolerated Keep extremity elevated above heart level: Operative Extremity Call your doctor if your incision/area has: Foul Smelling Discharge Call your doctor if you observe: Fever of 101 or Higher, Inability to urinate, Inability to have a bowel movement, Shortness of breath, Chest pain Change Dressing in (Days):: 1 - day, then daily Additional Dressing/Incision Instructions:: remove dressing daily to shower begining POD#3 then replace with ABD under issac hose. Home Medications: Medications to take at Discharge Amantadine [Symmetrel] 100 mg PO DAILY 03/06/14 Polyethylene Glycol 3350 [Miralax] 17 gm PO DAILY 03/06/14 donepezil 5 mg tablet 5 mg PO DAILY 10/05/18 Aspirin 81 mg PO DAILY 10/25/18 Carbidopa/Levodopa [Carbidopa-Levo ER 50-200 Tab] 2 tab PO TID 10/25/18 Famotidine [Pepcid] 20 mg PO DAILY 10/25/18 Apixaban [Eliquis] 2.5 mg PO BID 14 Days #28 tablet 11/03/18 Oxycodone [Oxyir] 5 mg PO Q4H PRN PRN #50 tablet 11/03/18 Following Prescrptions Were Given to Patient: Oxycodone [Oxyir] 5 mg PO Q4H PRN PRN #50 tablet PRN Reason: Mod-Severe Pain (4-10/10) Apixaban [Eliquis] 2.5 mg PO BID 14 Days #28 tablet Primary Care Physician: Tomeka Hastings [Primary Care Provider] - Please Follow Up With: Kemar Rucker, - 2wks Additional Instructions: Encourage FULL knee flexion and extension one time EVERY TIME you get up and down and MULTIPLE X / DAY Medical Necessity - Tobacco Use Smoking Status: Never smoker Meaningful Use Info Meaningful Use Diagnoses (Choose all that apply): None applicable
[2018-11-03 09:00] VITALS: BP 141/73; PULSE 86; RESP 18; TEMP 37.1; O2SAT 97
--- NOTE | 2018-11-03 09:36 | CASEMGMT ---
RN STEPHANY received update from ERIKA and floor nurse that patient will need FWW. RN STEPHANY received script and sent referral to [facility] [place] and arranged for walker to be delivered to patient's. RN STEPHANY updated patient. CM will continue to follow this patient and plan for a safe discharge.
[2018-11-03] MEDS: Donepezil HCl 5 MG Tablet PO (09:50)
[2018-11-03] MEDS: Famotidine 20 MG Tablet PO (09:51)
[2018-11-03] MEDS: APIXABAN 2.5 MG TABLET PO (09:51)
[2018-11-03] MEDS: Amantadine 100 MG Capsule PO (09:52)
== END 2018-11-03 11:13 | disposition home or self-care (01) | DRG 470 ==
LOC: ACINP 05:27 → MS3 12:12
PROVIDERS: Anesthesiology; Admitting Provider Orthopaedic Surgery; Family Provider Internal Medicine; PCP Internal Medicine; Referring Provider Orthopaedic Surgery; Visit Provider Orthopaedic Surgery
PROC: 0SRD0J9 Replacement of Left Knee Joint with Synthetic Substitute, Cemented, Open Approach (ICD-10-PCS; CPT 27447; principal; 2018-11-01 07:05)
DX: M17.12 Unilateral primary osteoarthritis, left knee (principal); M51.36 Other intervertebral disc degeneration, lumbar region; M41.9 Scoliosis, unspecified; G20 Parkinson's disease
CPT/HCPCS: 36415; 73560; 80048; 80053; 80076; 85025; 85027; 85610; 85730; 86850; 86900; 87081; 97110; 97163; 97166; 97530; 97535; C1776; J7120; A4216; J0702; J3490

== ENCOUNTER → 2018-11-17 12:08 | Outpatient (CLI) | payer MEDICARE, OTHER, SELFPAY ==
[2018-11-17 11:31] VITALS: BMI 26.4
--- NOTE | 2018-11-17 12:10 | VDLE_ITS ---
Reason For Study: LEG SWELLING RIGHT LEFT CFV is compressible, spontaneous, phasic, GSV is normal. competent and demonstrates normal CFV is compressible, spontaneous, phasic, augmentation. competent, and demonstrates normal Procedure augmentation. Exam performed in department. FV is compressible, spontaneous, phasic, A preliminary report was called and/or faxed competent and demonstrates normal to Dr. Rucker. augmentation. POP V is compressible, spontaneous, phasic, competent and demonstrates normal augmentation. T/P Trunk is compressible. PTV is compressible. LT PerV is compressible. Interpretation Summary There is no evidence of left lower extremity deep vein thrombosis. Left greater saphenous vein appears patent and compressible segmentally. Normal flow patterns right common femoral vein Ordering Physician: Kemar Rucker Referring Physician: Kemar Rucker Performed By: Debby Jim RVT
== END ==
PROVIDERS: Family Provider Internal Medicine; PCP Internal Medicine; Referring Provider Orthopaedic Surgery; Visit Provider Orthopaedic Surgery
DX: M79.662 Pain in left lower leg (principal)
CPT/HCPCS: 93971

== ENCOUNTER → 2018-12-14 13:05 | Outpatient (CLI) | payer MEDICARE, OTHER, SELFPAY ==
[2018-12-14 07:54] VITALS: BMI 26.4
--- NOTE | 2018-12-14 13:07 | RAD_ITS ---
STUDY: X-RAY - LEFT KNEE REASON FOR EXAM: Follow-up knee arthroplasty. TECHNIQUE: 4 view(s) of the knee. COMPARISON: Radiographs 11/01/2018. FINDINGS: There is a total knee arthroplasty without evidence of complication. There is anterior soft tissue swelling. RAD/Knee 4 or More Views IMPRESSION: Uncomplicated left total knee arthroplasty. Electronically Signed: Juan Panda MD at 15:41 EDT Tel , Service support ,
== END ==
PROVIDERS: Family Provider Internal Medicine; PCP Internal Medicine; Referring Provider Orthopaedic Surgery; Visit Provider Orthopaedic Surgery
DX: Z96.652 Presence of left artificial knee joint (principal)
CPT/HCPCS: 73564

== ENCOUNTER → 2019-11-05 11:07 | Outpatient (CLI) | payer MEDICARE, OTHER, SELFPAY ==
[2019-11-05 07:53] VITALS: BMI 26.4
--- NOTE | 2019-11-05 11:09 | RAD_ITS ---
STUDY: X-RAY - LEFT KNEE REASON FOR EXAM: Postoperative follow-up. TECHNIQUE: 4 view(s) of the knee. COMPARISON: Radiographs 12/14/2018. FINDINGS: There is a left total knee arthroplasty without evidence of complication. The soft tissue structures are unremarkable. RAD/Knee 4 or More Views IMPRESSION: Uncomplicated left total knee arthroplasty. Electronically Signed: Juan Panda MD at 12:26 EST Tel , Service support ,
== END ==
PROVIDERS: PCP Internal Medicine; Visit Provider Orthopaedic Surgery
DX: Z96.659 Presence of unspecified artificial knee joint (principal)
CPT/HCPCS: 73564